=== PATIENT | female | born 1960 | race Caucasian/White ===

== ENCOUNTER → 2023-08-04 12:42 | Outpatient (CLI) | payer BC, SELFPAY ==
--- NOTE | ~2023-08-04 | US_ITS ---
EXAMINATION: US pelvic complete w TV DATE: 08/04/2023 13:09 INDICATION: Postmenopausal bleeding. TECHNIQUE: Multiple transabdominal and transvaginal sonographic images of the pelvis were obtained. COMPARISON: None. FINDINGS: TRANSABDOMINAL ULTRASOUND: The uterus measures 4.1 x 2.9 x 1.8 cm. There is no free fluid in the pelvis. TRANSVAGINAL ULTRASOUND: The endometrial complex measures 2 mm in thickness. The right ovary measures 0.9 x 1.2 x 1.7 cm. Ther e is normal vascular flow in right ovary. The left ovary not visualized. There are prominent periuter ine veins, consistent with pelvic venous insufficiency. IMPRESSION: 1. Normal endometrial complex. 2. Pelvic venous insufficiency. Reviewed, dictated and finalized at location E. [facility] [employer]
== END ==
PROVIDERS: PCP Family Medicine; Visit Provider Registered Nurse
DX: N95.0 Postmenopausal bleeding (principal); I87.2 Venous insufficiency (chronic) (peripheral)
CPT/HCPCS: 76830; 76856

== ENCOUNTER 2024-09-19 13:58 | Outpatient (CLI) | payer BC, SELFPAY ==
--- NOTE | 2024-09-19 14:53 | ECG_ITS ---
Test Date: 2024-09-19 15:16:44 Measurements Intervals [place] Rate: 67 P: 38 HI: 148 QRS: 65 QRSD: 89 T: 55 QT: 376 QTc: 399 Interpretive Statements SINUS RHYTHM No previous ECG available for comparison Electronically Signed On 09-20-2024 13:16:15 CDT by Carly Silverman M.D.
[2024-09-19 15:26] LABS: Basophils Absolute Auto 0.1 K/mm3 (0.0-0.1); Eosinophils Absolute Auto 0.1 K/mm3 (0-0.3); Eosinophils Percent Auto 1.2 % (0-4.4); Hematocrit 42.1 % (37.0-47.0); Hemoglobin 14.5 g/dL (12.0-15.0); Immature Granulocyte Absolute 0.03 K/mm3 (0.00-0.031); Immature Granulocyte Percent A 0.5 % (0-0.5); Lymphocytes Absolute Auto 1.67 K/mm3 (0.9-3.2); Lymphocytes Percent Auto 27.6 % (18.3-44.2); Mean Corpuscular HGB Conc 34.4 g/dl (32-36); Mean Corpuscular Hemoglobin 30.5 pg (26-34); Mean Corpuscular Volume 88.6 fl (80-100); Mean Platelet Volume 9.2 fl (7.4-10.4); Monocytes Absolute Auto 0.6 K/mm3 (0.1-0.6); Monocytes Percent Auto 9.6 % (2.6-8.5); Neutrophils Absolute Auto 3.6 K/mm3 (1.3-6.7); Neutrophils Percent Auto 60.1 % (45.5-73.1); Platelet Count Result 262 k/mm3 (150-375); Red Blood Count 4.75 M/mm3 (4.2-5.4); Red Cell Distribution Width 12.9 % (11.5-14.5)
[2024-09-19 15:42] LABS: INR 0.9; Prothrombin Time 13.1 Seconds (11.1-14.7)
[2024-09-19 15:43] LABS: Partial Thromboplastin Time 27.3 Seconds (22.3-36.8)
[2024-09-19 15:44] LABS: Alanine Aminotransferase 30 U/L (6-35); Albumin Level 4.7 g/dL (3.5-5.1); Alkaline Phosphatase 79 U/L (38-126); Anion Gap 10 mmol/L (4-12); Aspartate Amino Transferase 30 U/L (14-36); Bilirubin,Total 0.4 mg/dL (0.2-1.3); Blood Urea Nitrogen 30 mg/dL (7-17); Calcium 10.3 mg/dL (8.4-10.2); Carbon Dioxide 30 mmol/L (22-30); Chloride 100 mmol/L (98-107); Estimated Glomerular Filt Rate 54; Glucose 95 mg/dL (65-110); Potassium 3.8 mmol/L (3.4-5.0); Sodium 140 mmol/L (137-145)
--- OUTSIDE RECORDS SUMMARY | 2024-09-19 15:50 | XMS_ITS | Referral Summary ---
Author Organization [address] lt Address [address] [place] [address] [place] [address] Care Team Providers Care Gsa Coordinator Name Role Phone Bienvenido Girard MD Primary Care Provider [phone] Rodriguez Key MD Unavailable [phone] Encounters Date Type Department Care Team Description 08/10/2024 8:20 AM REVENUE LIAISON - 08/10/2024 11:59 PM REVENUE LIAISON Hospital Encounter [facility] - Breast Imaging [address] [place] [id number] Encounter for screening mammogram for breast cancer; Abnormal mammogram Discharge Disposition: Discharge to home or self care 08/10/2024 8:30 AM REVENUE LIAISON Office Visit [facility] Surgery [address] [place] [address] Floor [address] [place] [id number] Amina Fleming NP Fibroadenoma of breast, left (Primary Dx); Encounter for screening mammogram for malignant neoplasm of breast 08/09/2024 Telephone [facility] - Breast Imaging [address] [place] [address] 8 [place] [address] Bernabe Matta MA Appointment Reminder Call from Last 3 Months Allergies No known active allergies Medications vitamin E 600 unit capsule Take 1 capsule (600 Units total) by mouth daily Active vitamin B complex capsule Take 1 capsule by mouth daily Active cholecalcifero l (VITAMIN D-3) 2000 unit capsule Take 1 capsule (2,000 Units total) by mouth daily 30 capsule 08/03/19 24 Active calcium-vits D8-F-V2-minera ls 166.75 mg- 166.75 unit capsule Take by mouth Active atorvastatin (LIPITOR) 80 mg tablet Take 1 tablet (80 mg total) by mouth daily 90 tablet 3 02/22/20 24 025 Active dicyclomine (BENTYL) 10 mg capsule Take 1-2 pills up to 4 times daily as needed for problematic diarrhea and/or cramping. Can take 10-15 minutes prior to eating to prevent problematic symptoms after eating. 120 capsule 3 03/22/20 24 Active ascorbic acid (vitamin C) 1,000 mg tablet Active aspirin (Kenna Low Dose Aspirin) 81 mg enteric coated tablet Active coenzyme Q10 200 mg capsule Activ e traMADoL (ULTRAM) 50 mg tabletIndicati ons:Chronic midline low back pain without sciatica Take 1 tablet (50 mg total) by mouth every 6 (six) hours as needed for pain for pain 180 tablet 08/24/19 25 Active budesonide EC (ENTOCORT EC) 3 mg 24 hr capsuleIndicat ions:Microscop ic colitis Take 3 capsules (9 mg total) by mouth every morning 126 capsule 08/28/19 25 025 Active traMADoL (ULTRAM) 50 mg tabletIndicati ons:Chronic midline low back pain without sciatica Take 1 tablet (50 mg total) by mouth every 6 (six) hours as needed for pain for pain 180 tablet 05/18/20 24 025 Discontinued Active Problems Problem Noted Date Diagnosed Date Female bladder prolapse, acquired 05/09/2024 Assessment & Plan (05/09/2024 8:31 AM CDT): Patient reports long history of bladder prolapse, referral placed to Urology today. She reports she is scheduled with Urology, Dr. Mi next month. Denies any symptoms of burning or frequency. Aware to avoid straining and constipation. Lymphocytic colitis 05/08/2024 Diarrhea 03/22/2024 Change in bowel habits 03/22/2024 Abnormal stress test 02/02/2024 Family history of heart disease 01/19/2024 Essential hypertension 01/19/2024 Abnormal mammogram of left breast 08/09/2023 Fibroadenoma of breast, left 08/09/2023 Trigger thumb of left hand 07/19/2023 Encounter for screening mammogram for breast can cer 03/09/2023 Dermatitis 09/02/2022 Assessment & Plan (09/02/2022 8:35 AM REVENUE LIAISON): Continue to avoid any fragrant detergents/lotions/soaps. Will follow up with air cargo ground crew supervisor as schedule 09/07/22. Pain of left upper extremity 05/14/2022 Assessment & Plan (05/14/2022 2:04 PM CDT): No abnormal findings on exam. Discussed nerve irritation with patient. Recommended ibuprofen 6-800 mg 3 times a day with meals. Patient to notify office if no improvement in the next 1-2 weeks or sooner if she experiences any new or worsening symptoms. Annual physical exam 02/12/2022 Assessment & Plan (11/05/2023 5:32 PM CDT): Preventive exam; reviewed recommended preventive screenings and vaccinations. Encourage annual flu vaccine. Wear sunscreen/protective clothing when outdoors. -repeat mammogram 07/2024 -repeat colonoscopy 2027 Assessment & Plan (02/12/2022 8:16 AM CDT): 1. Eat a healthy diet: focus on lean meats and proteins, more fruits, vegetables and whole grains and low in sugars and fats. Limit red meat and avoid processed meat. 2. Maintain a healthy weight; avoid being overweight. Aim for a normal body mass index (BMI) of 18.5-24.9. Help learning to eat healthier, we can set up appointment with pullman car clerk/avionics electrical engineer. 3. Have an active lifestyle, strive for 30 minutes of moderate exercise 5 times a week and strength or resistance training at least twice a week. 4. Use broad-spectrum (UVA+UVB) sunscreen with SPF 30 or greater, is water resistant, limit time spent in the sun (10 am-4pm), wear hat, wear UV protective clothing, wear sunglasses. Never use a tanning bed. Skin that was irradiated may be more sensitive over your lifetime. 5. Does not smoke or chew tobacco. 6. Limit alcohol intake, 1 drink per day for a woman. BMI 21.0-21.9, adult 02/12/2022 Assessment & Plan (05/09/2024 8:30 AM CDT): Patient with active and healthy lifestyle. BMI appropriate for patient Assessment & Plan (11/05/2023 5:31 PM CDT): BMI is appropriate for patient. Assessment & Plan (09/02/2022 8:27 AM REVENUE LIAISON): Discussed healthy diet and importance of regular physical activity. Assessment & Plan (05/14/2022 2:05 PM CDT): BMI acceptable for this patient Assessment & Plan (02/12/2022 8:17 AM CDT): BMI is acceptable for this patient. Discussed healthy diet and importance of regular physical activity. Chronic pain of left thumb 02/12/2022 Assessment & Plan (02/12/2022 8:34 AM CDT): Referral to [facility] for L thumb pain. Contact info given. Mixed hyperlipidemia 03/26/2017 Assessment & Plan (05/09/2024 8:30 AM CDT): See discussion above Assessment & Plan (11/05/2023 5:32 PM CDT): Reviewed lipid panel today with patient. Excellent control. Continue atorvastatin 10 mg daily. Assessment & Plan (03/09/2023 8:18 AM CDT): LDL = 72 patient is compliant with atorvastatin 10 mg daily. Will continue to monitor. Assessment & Plan (09/02/2022 8:28 AM REVENUE LIAISON): Atorvastatin 10 mg daily. Denies any medication side effects. Will repeat labs and make additional changes as needed. Assessment & Plan (02/12/2022 8:14 AM CDT): 12/18/19 CU=144 HDL=77 AV=625 LDL=42 TC/HDL=1.9 12/13/20 PT=331 HDL=70 TG=43 LDL=82 TC/HDL=2.0 NON HDL=91 08/12/21 HE=791 HDL=61 TG=41 LDL=76 TC/HDL=2 NONHDL=84 Lipid panel remains very well controlled over time. Atorvastatin 10mg daily. Denies myalgias. We will check labs and make adjustments to medications as needed. Patient should focus on limiting bad fats in the diet and using exercise as a way to improve the lipid status. Secondary prevention. Reviewed medications. Lipid panel ordered; will call w/results when rec'd. Denies any statin Ses. Reviewed diet/exercise recommendations. Reviewed red flags. The 10-year ASCVD risk score (Cierra JOHNSON Jr., et al., 2013) is: 3.4% Values used to calculate the score: Age: 61 years Sex: Female Is Non- : No Diabetic: No Tobacco smoker: No Systolic Blood Pressure: 126 mmHg Is BP treated: No HDL Cholesterol: 61 mg/dL Total Cholesterol: 145 mg/dL Assessment & Plan (09/12/2020 9:55 AM REVENUE LIAISON): Atorvastatin 10mg daily. 04/20/18 OI=283 HDL=73 TG=59 LDL=85 TC/HDL=2.4 12/18/19 QO=829 HDL=77 DI=320 LDL=42 TC/HDL=1.9 The 10-year ASCVD risk score (Cierra JOHNSON Jr., et al., 2013) is: 2.9% Values used to calculate the score: Age: 60 years Sex: Female Is Non- : No Diabetic: No Tobacco smoker: No Systolic Blood Pressure: 130 mmHg Is BP treated: No HDL Cholesterol: 73 mg/dL Total Cholesterol: 149 mg/dL We will check labs and make adjustments to medications as needed. Patient should focus on limiting bad fats in the diet and using exercise as a way to improve the lipid status. Secondary prevention. Reviewed medications. Lipid panel ordered; will call w/results when rec'd. Denies any statin Ses. Reviewed diet/exercise recommendations. Reviewed red flags. Assessment & Plan (12/18/2019 9:14 AM CDT): 04/20/18 UO=270 HDL=73 TG=59 LDL=85 TC/HDL=2.4 12/18/19 RW=185 HDL=77 CI=388 LDL=42 TC/HDL=1.9 Now doing intermittent fasting diet. Feels that it is going well. Watching intake. Patient should focus on limiting bad fats in the diet and using exercise as a way to improve the lipid status. Secondary prevention. Reviewed medications. Denies any statin Ses. Reviewed diet/exercise recommendations. Reviewed red flags. Coronary artery calcification 10/12/2016 Overview (08/12/2021): Coronary calcium score 621 09/25 Assessment & Plan (05/09/2024 8:30 AM CDT): Patient reports that atorvastatin was increased from 10 mg daily to 80 mg daily by Cardiology. Lipid POCT completed in office today, LDL has increased, will repeat panel at lab to verify. Denies any chest pain or shortness for breath. Chronic low back pain 04/13/2016 Overview (10/15/2016): Chronic bilateral low back pain with sciatica, sciatica laterality unspecified Assessment & Plan (11/05/2023 5:32 PM CDT): Stable, continue present management with p.r.n. tramadol. Assessment & Plan (03/09/2023 8:28 AM CDT): Back pain is stable, good response to prn use of tramadol. Will continue to monitor. Assessment & Plan (09/02/2022 8:36 AM REVENUE LIAISON): Stable; continues tramadol 50 mg bid prn. Denies any new or worsening symptoms, no b/b dysfunction. Assessment & Plan (02/12/2022 8:13 AM CDT): Tramadol 50mg bid prn. #180 refilled 11/17/21. Encouraged otc tylenol/ibuprofen prn back pain. Discussed ice, gentle ROM, increased activity/core strengthening & other non pharm methods of pain relief. Denies bowel/bladder dysfunction. Denies cauda equina. Reviewed red flags. Assessment & Plan (09/12/2020 10:26 AM REVENUE LIAISON): Images from the original note were not included. Tramadol 50mg #28 last filled 08/30/20. Taking bid prn Encouraged otc tylenol/ibuprofen prn back pain. Discussed ice, gentle ROM, increased activity/core strengthening & other non pharm methods of pain relief. Denies bowel/bladder dysfunction. Denies cauda equina. Reviewed red flags. Sent to [facility]. Assessment & Plan (12/18/2019 8:49 AM CDT): Encouraged otc tylenol/ibuprofen prn back pain. Discussed ice, gentle ROM, increased activity/core strengthening & other non pharm methods of pain relief. Denies bowel/bladder dysfunction. Denies cauda equina. Reviewed red flags. Tramadol last filled 09/20/19. Refilled today. Resolved Problems Problem Noted Date Diagnosed Date Resolved Date Breast cancer screening by mammogram 09/12/2020 03/09/2023 Assessment & Plan (02/12/2022 8:13 AM CDT): Last mamm 02/15/21 Mammogram order given; will call with results when received. Encouraged to perform monthly SBE. Assessment & Plan (09/12/2020 10:25 AM REVENUE LIAISON): Mammogram order given; will call with results when received. Encouraged to perform monthly SBE. BMI 21.0-21.9, adult 12/18/2019 022 Assessment & Plan (09/12/2020 9:54 AM REVENUE LIAISON): Discussed healthy diet and importance of regular physical activity. BMI is acceptable for this patient. Assessment & Plan (12/18/2019 8:47 AM CDT): Discussed healthy diet and importance of regular physical activity. BMI is acceptable for this patient. Encounter for screening colonoscopy 03/08/2018 12/18/2019 Overview (03/08/2018): Added automatically from request for surgery [id number] Distal radius fracture, right 07/28/2017 12/17/2019 Feces contents abnormal 11/25/201301/2020 Overview (10/14/2016): ABN FIND-STOOL CONTENTS Constipation 11/25/2013 12/18/2019 Overview (10/14/2016): CONSTIPATION NOS Immunizations Immunization Administration Dates Next Due Influenza, Quadrivalent, Spl it, Intramuscular 03/12/2014 Influenza, Quadrivalent, Spl it, Preservative Free, Intramuscular 03/26/2017 Influenza, Trivalent, IM (MDV) 04/25/2024 Influenza, Unspecified 11/05/2023(Deferr ed: Patient Refused),04/11/2023(Deferred: Patient Refused),04/11/2023(Deferred: Patient Refused),04/01/2022,04/11/2021, 020(Deferred: Patient Refused),04/11/2020,04/11/2020, 019(Deferred: Patient Refused),05/03/2019,05/03/2019, 018,04/11/2018 Pfizer SARS-CoV-2 Monovalent Vaccination (12+ Yrs) BAKER-READY TO USE 01/30/2022 Pfizer SARS-CoV-2 Monovalent Vaccination (12+ Yrs) PURPLE 09/28/2020,09/07/2020,09/07/2020 Pfizer SARS-CoV-2 Monovalent Vaccination (5-11 Yrs) 05/30/2021 Social History Tobacco Use Types Packs/Day Years Used Date Smoking Tobacco: Never Smokeless Tobacco: Never Tobacco Cessation:Counseling Given: Not Answered Alcohol Use Standard Drinks/Week Comments Yes 1 (1 standard drink = 0.6 oz pur e alcohol) Weekends/Occassional AUDIT-C Answer Date Recorded Q1: How often do you have a drink containing alc ohol? 2-4 times a month 04/20/2024 Q2: How many drinks containi ng alcohol do you have on a typical day when you are drinking? 1 or 2 04/20/2024 Frequency of Binge Drinking Not on file 04/11 PHQ-2 Answer Date Recorded PHQ-2 Total Score (If total score is 3 or more points, staff should administer the PHQ-9) 0 05/09/2024 Personal Safety Answer Date Recorded Have you ever been in or are you currently in a harmful physical or emotional relationship or is someone making you feel afraid or unsafe? Denies 04/24/2024 Comments No Sex and Gender Information Value Date Recorded Sex Assigned at Not on file Legal Sex Female 5:53 PM REVENUE LIAISON Gender Identity Female 08/12/2021 7:52 AM REVENUE LIAISON Sexual Orientation Straight 08/12/2021 7: 52 AM REVENUE LIAISON Last Filed Vital Signs Vital Sign Reading Time Taken Comments Blood Pressure 146/80 08/10/2024 8:27 AM REVENUE LIAISON Pulse 58 08/10/2024 8:27 AM REVENUE LIAISON Temperature 36.5 C (97.7 F) 05/09/2024 7:51 AM CDT Respiratory Rate 18 08/10/2024 8:27 AM REVENUE LIAISON Oxygen Saturation 98% 08/10/2024 8:27 AM REVENUE LIAISON Inhaled Oxygen Concentration - - Weight 53.5 kg (118 lb) 08/10/2024 8:27 AM REVENUE LIAISON Height 154.9 cm (5' 0.98 ) 08/10/2024 8:27 AM CS T Body Mass Index 22.31 08/10/2024 8:27 AM REVENUE LIAISON Plan of Treatment Not on file Medical Devices Implanted Type Area Almond Sorter Device Identifier Shelf Expiration Date Model / Serial / Lot Plate Bone Acu-Loc 2 Narrow L51 Mm Radius Right Distal Volar Nonsterile Silver 2.3 Mm Screw - [id number] Implanted:Qty: 1 on 08/05/2017 by Agustin Garcia III, MD at [facility] Analiza [id number] / / Screw Bone L12 Mm Od3.5 Mm Elbow Locking Hexalobe Sterile - [id number] Implanted:Qty: 1 on 08/05/2017 [id number] / / Peg Bone 22mm 2.3mm Aclc Sm Lkng - [id number] Implanted:Qty: 2 on 08/05/2017 by [facility]ust[id number] / / Screw Bone Titanium Full Thread L20 Mm Od2.3 Mm Cortical Lock Nonsterile Gold - [id number] Implanted:Qty: 1 on 08/05/2017 by Agustin Garcia III, MD at [facility] [employer] [id number] / / Peg Fixation Acu-Loc Titanium L18 Mm Od2.3 Mm Cortical Smooth Lock Nonsterile Bronze - [id number] Implanted:Qty: 1 on 08/05/2017 by Agustin Garcia III, MD at [facility] [employer] [id number] / / Peg Fixation Acu-Loc Titanium L20 Mm Od2.3 Mm Cortical Smooth Lock Nonsterile Bronze - [id number] Implanted:Qty: 1 on 08/05/2017 by Agustin Garcia III, MD at [facility] [employer] [id number] / / Screw Bone L12 Mm Od3.5 Mm Nonlock Hexalobe Head Nonsterile - [id number] Implanted:Qty: 1 on 08/05/2017 by Agustin Garcia III, MD at [facility] Analiza [id number] / / Screw Bone L10 Mm Od3.5 Mm Elbow Locking Hexalobe Sterile - [id number] Implanted:Qty: 1 on 08/05/2017 by Agustin Garcia III, MD at [facility] Analiza [id number] / / Peg Fixation Acu-Loc Titanium L20 Mm Od2.3 Mm Cortical Smooth Lock Nonsterile Bronze - [id number] Implanted:Qty: 1 on 08/05/2017 by Agustin Garcia III, MD at [facility] [employer] [id number] / / [employer] Eviva 13cm Identifier Biopsy Site [id number] - [id number] Implanted:Qty: 1 on 08/02/2023 by Mo Escobedo MD at [facility] Left: Breast [employer] [id number] 02/16/2024 [facility] VA-13 / / [id number] [employer] Fernando Angio-Seal Vip 6fr Closere Device [id number] - [id number] Implanted:Qty: 1 on 02/22/2024 by Meseret Jin MD at [facility] [employer] 09/30/2024 [id number] / / [id number] Explanted Type Area Almond Sorter Device Identifier Shelf Expiration Date Model / Serial / Lot Screw Bone Acu-Loc 2 Titanium L22 Mm Od2.3 Mm Cortical Nontoggle Thread Nonsterile Silver - [id number] Implanted:Qty: 1 Explanted:Qty: 1 on 08/05/2017 at [facility] [employer] [id number] / / Procedures Procedure Name Priority Date/Time Associated Diagnosis Comments SCREENING MAMMOGRAM BILATERAL W SAM Schedule Routine, Read Routine (OP Routine) 08/10/2024 9:34 AM REVENUE LIAISON Encounter for screening mammogram for breast cancer Abnormal mammogram COLONOSCOPY 04/24/2024 12:35 PM CDT DEXA AXIAL SKELETON BONE DENSITY 1 OR MORE SITES Schedule Routine, Read Routine (OP Routine) 12/01/2023 7:58 AM CDT Encounter for osteoporosis screening in asymptomatic postmenopausal patient HEPATITIS C RNA, QUANTITATIVE, PCR Routine 12/18/2019 9:24 AM CDT HM PAP SMEAR WITH HPV Routine 04/24/2016 from Last 3 Months or Most Recently Relevant to Health Maintenance Results * Screening Mammogram Bilateral W Sam (08/10/2024 9:34 AM REVENUE LIAISON) Anatomical Region Laterality Modality Breast Bilateral Mammography Narrative 08/10/2024 2:09 PM REVENUE LIAISON Mammogram Technique: Bilateral Digital Breast Tomosynthesis, Bilateral C-view 2D Screening mammogram. Views obtained: bilateral craniocaudal and bilateral mediolateral oblique. Computer Aided Detection was performed. Mammogram Findings: The present examination has been compared to prior imaging studies performed at [facility]. [facility] on 03/07/2022, 05/22/2023 and 06/24/2023. There are scattered areas of fibroglandular density. There is no suspicious abnormality in either breast. Impression: There is no mammographic evidence of malignancy. Annual screening mammography is recommended. OVERALL FINAL ASSESSMENT: BI-RADS CATEGORY 1: Negative. Procedure Note Grace Enciso MD - 08/10/2024 Mammogram Technique: Bilateral Digital Breast Tomosynthesis, Bilateral C-view 2D Screening mammogram. Views obtained: bilateral craniocaudal and bilateral mediolateral oblique. Computer Aided Detection was performed. Mammogram Findings: The present examination has been compared to prior imaging studies performed at [facility]. [facility] on 03/07/2022, 05/22/2023 and 06/24/2023. There are scattered areas of fibroglandular density. There is no suspicious abnormality in either breast. Impression: There is no mammographic evidence of malignancy. Annual screening mammography is recommended. OVERALL FINAL ASSESSMENT: BI-RADS CATEGORY 1: Negative. Amina Fleming MICROCOMPUTER SUPPORT SPECIALIST IMG MAMMO PROCEDURES Fi nal Result * Colonoscopy (04/24/2024 12:35 PM CDT) Anatomical Region Laterality Modality Other Narrative Procedure Note Nacho Sue, - 04/24/2024 12:35 PM CDT [facility] Patient Name: Alice Castillo Procedure Date: 04/24/2024 12:35PM Date of : 1960 Admit Type: Outpatient Age: 63 Gender: Female Attending MD: Nacho Sue D.O. Room: [facility] ROOM 2 Note Status: Finalized Patient Profile: This is a 63 year old female. Procedure: Colonoscopy Indications: Last colonoscopy: May 2018, Abdominal pain, Clinically significant diarrhea of unexplainedorigin Referring MD: Bienvenido Girard M.D. Providers: Nacho Sue D.O. Impression: - The terminal ileum is normal. Biopsied. - The examined portion of the ileum was normal. Recommendation: - Discharge patient to home. - Benefiber or Metamucil q.d.. Weimob probiotic per labelinstructions. indefinitely. - Repeat colonoscopy in 10 years for screening purposes. - Return to primary care physician PRN. - Await pathology results. -cautious intake of dairy products. -dicyclomine t.i.d. as needed. -call 2 weeks for biopsy report. -follow-up in the office if no improvement. Medicines: See the Anesthesia note for documentation of the administered medications Complications: No immediate complications. Estimated Blood Loss: Estimated blood loss: none. Procedure: Pre-Anesthesia Assessment: - Please refer to anesthesia note. The benefits, risks and alternatives of theprocedure and sedation were discussed and informed consentwas obtained. All questions were answered. Please referto the signed informed consent document in the medical record. The bowel preparation used was Miralax and bisacodyl tablets via split dose instruction. The scope was passed under direct vision. The Pediatric Colonoscope [id number]-[id number] was introducedthrough the anus and advanced to the the terminal ileum.The patient tolerated the procedure well. The qualityof the bowel preparation was good. Findings: The perianal and digital rectal examinations were normal. The ileum appeared normal. Biopsies for histology were taken with acold forceps from the entire colon for evaluation of microscopic colitis. Estimated blood loss was minimal. The terminal ileum appeared normal. Electronically signed by Nacho Sue M.D. Nacho Sue D.O. 04/24/2024 3:03:28 PM Number of Addenda: 0 Note Initiated On: 04/24/2024 12:35 PM Procedure Code(s): --- Professional --- 57399, Colonoscopy, flexible; with biopsy, single or multiple --- Technical --- 54485, Colonoscopy, flexible; with biopsy, single or multiple Diagnosis Code(s): --- Professional --- R10.9, Unspecified abdominal pain R19.7, Diarrhea, unspecified --- Technical --- R10.9, Unspecified abdominal pain R19.7, Diarrhea, unspecified CPT copyright 2020 [employer]. All rights reserved. The codes documented in this report are preliminary and upon label coder reviewmay be revised to meet current compliance requirements. 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 IMPRESSION: Osteoporosis. REFERENCE: Bone mineral density: T-Score: Normal (T-score above or = -1.0) Low bone mass (T-score between -1.0 and -2.5) replaces the previously used term osteopenia Osteoporosis (T-score = or below -2.5) Z-Score: Within the expected range for age (Z-score above -2.0) Below the expected range for age (Z-score is -2.0 or below) Please see below follow up recommendations. Medical evaluation for secondary causes of low bone mineral density may be appropriate. FRAX is a World Health Organization validated fracture risk assessment tool that calculates a person's 10 year probability of a major osteoporosis related fracture and hip fracture. According to the National Osteoporosis Foundation guidelines, postmenopausal women and men age 50 or older with low bone mass and a 10 year probability of a major osteoporosis related fracture = or greater than 20% or a 10 year probability of a hip fracture = or greater than 3% should be considered for pharmacological treatment for the prevention of osteoporosis. For further information, including treatment recommendations, please refer to the 2019 ISCD Official Positions (http://www.iscd.org) and the NOF's Clinician's Guide to Prevention and Treatment of Osteoporosis (http://www.nof.org/professionals/clinical-guidelines) THIS IS AN ELECTRONICALLY VERIFIED FINAL REPORT 12/01/2023 3:28 PM - Electronically signed by Nicolas Frazier M.D. 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 IMPRESSION: Osteoporosis. REFERENCE: Bone mineral density: T-Score: Normal (T-score above or = -1.0) Low bone mass (T-score between -1.0 and -2.5) replaces thepreviously used term osteopenia Osteoporosis (T-score = or below -2.5) Z-Score: Within the expected range for age (Z-score above -2.0) Below the expected range for age (Z-score is -2.0 or below) Please see below follow up recommendations. Medical evaluation forsecondary causes of low bone mineral density may be appropriate. FRAX is a World Health Organization validated fracture risk assessmenttool that calculates a person's 10 year probability of a major osteoporosisrelated fracture and hip fracture. According to the National OsteoporosisFoundation guidelines, postmenopausal women and men age 50 or older with low bonemass and a 10 year probability of a major osteoporosis related fracture = or greater than 20% or a 10 year probability of a hip fracture = or greaterthan 3% should be considered for pharmacological treatment for the preventionof osteoporosis. For further information, including treatment recommendations, please referto the 2019 ISCD Official Positions (http://www.iscd.org) and the NOF's Clinician's Guide to Prevention and Treatment of Osteoporosis (http://www.nof.org/professionals/clinical-guidelines) THIS IS AN ELECTRONICALLY VERIFIED FINAL REPORT 12/01/2023 3:28 PM - Electronically signed by Nicolas HOFF: LUIS EDUARDO Report ID: [id number] Reading Location: [place] [address] Leah Potter NP IMG DXA PROCEDURES Final Re sult * Hepatitis C (HCV) RNA PCR, quantitative (12/18/2019 9:24 AM CDT) HCV RNA IU/mL <15 NOT DETECTED NOT DETECTED IU/mL [facility] HCV RNA log IU/mL <1.18 NOT DETECTED NOT DETECTED Log IU/mL [facility] Comment: This test was performed using Real-Time Polymerase Chain Reaction. Reportable Range: 15 IU/mL to 100,000,000 IU/mL (1.18 Log IU/mL to 8.00 Log IU/mL). The analytical performance characteristics of this assay have been determined by [employer]. The modifications have not been cleared or approved by the FDA. This assay has been validated pursuant to the CLIA regulations and is used for clinical purposes. For more information on this test, go to: http://education.Pain Doctor/faq/DHW93s1 (This link is being provided for informational/ educational purposes only.) 12/18/2019 9:24 AM CDT 12/18/2019 9:26 AM CDT Narrative [facility] - 12/19/2019 3:27 PM CDT FASTING:YES FASTING: YES Vanessa Rasmussen NP LAB MICROBIOLOGY - GENERA L ORDERABLES Final Result [facility] [address] [place] [address] * PAP SMEAR WITH HPV (04/24/2016) Pathologist [facility] Pap smear Normal Comment:Dr Fuentes at [facility] Historical Provider HEALTH MAINTENANCE Final Result from Last 3 Months or Most Recently Relevant to Health Maintenance Insurance [employer] OOS [employer] OOS * Guarantor: ALICE CASTILLO Account Type Relation to Patient Date of Phone Billing Address Personal/Family Self Advance Directives For more information, please contact: [phone] * Full Code (Latest Code Status on File) Date Activated Date Inactivated Comments 04/24/2024 12:37 PM 04/24/2024 7:43 PM * Full Code Date Activated Date Inactivated Comments 04/24/2024 12:37 PM 04/24/2024 12:37 PM * Full Code Date Activated Date Inactivated Comments 05/30/2018 7:42 AM 05/30/2018 11:32 AM * Full Code Date Activated Date Inactivated Comments 05/30/2018 7:42 AM 05/30/2018 7:42 AM Care Teams Gsa Coordinator Relationship Specialty Start Date End Date Bienvenido Girard [place] [address] PCP - General 10/09/16 Rodriguez Key MD [address] [facility] [address] [address] Referring Physician Obstetrics and Gynecology 06/24/23
--- OUTSIDE RECORDS SUMMARY | 2024-09-19 15:50 | XMS_ITS | Clinical Summary ---
Author Organization [address] lt Address [address] [place] [address] [place] [address] Care Team Providers Care Software Test Specialist Name Role Phone Bienvenido Girard MD Primary Care Provider [phone] Rodriguez Key MD Unavailable [phone] Allergies No known active allergies Medications vitamin E 600 unit capsule Take 1 capsule (600 Units total) by mouth daily Active vitamin B complex capsule Take 1 capsule by mouth daily Active cholecalcifero l (VITAMIN D-3) 2000 unit capsule Take 1 capsule (2,000 Units total) by mouth daily 30 capsule 08/03/19 24 Active calcium-vits C5-R-Y3-minera ls 166.75 mg- 166.75 unit capsule Take [...] 09/02/2022 Assessment & Plan (09/02/2022 8:35 AM REPORTING LEAD): Continue to avoid any fragrant detergents/lotions/soaps. Will follow up with diamond setter apprentice as schedule 09/07/22. Pain of left upper [...] healthier, we can set up appointment with fire control mechanic/rhic systems safety engineer. 3. Have an active lifestyle, strive [...] patient. Assessment & Plan (09/02/2022 8:27 AM REPORTING LEAD): Discussed healthy diet and importance of regular [...] monitor. Assessment & Plan (09/02/2022 8:28 AM REPORTING LEAD): Atorvastatin 10 mg daily. Denies any medication side effects. Will repeat labs and make additional changes as needed. Assessment & Plan (02/12/2022 8:14 AM CDT): 12/18/19 SC=107 HDL=77 TZ=879 LDL=42 TC/HDL=1.9 12/13/20 MV=141 HDL=70 TG=43 LDL=82 TC/HDL=2.0 NON HDL=91 08/12/21 KW=693 HDL=61 TG=41 LDL=76 TC/HDL=2 NONHDL=84 Lipid panel [...] red flags. The 10-year ASCVD risk score (Cierragisela JOHNSON Jr., et al., 2013) is: 3.4% Values used to calculate the score: Age: 61 years Sex: Female Is Non- : No Diabetic: No Tobacco smoker: No Systolic Blood Pressure: 126 mmHg Is BP treated: No HDL Cholesterol: 61 mg/dL Total Cholesterol: 145 mg/dL Assessment & Plan (09/12/2020 9:55 AM REPORTING LEAD): Atorvastatin 10mg daily. 04/20/18 DV=540 HDL=73 TG=59 LDL=85 TC/HDL=2.4 12/18/19 AC=167 HDL=77 WH=888 LDL=42 TC/HDL=1.9 The 10-year ASCVD risk score [...] & Plan (12/18/2019 9:14 AM CDT): 04/20/18 DM=876 HDL=73 TG=59 LDL=85 TC/HDL=2.4 12/18/19 QF=097 HDL=77 BN=933 LDL=42 TC/HDL=1.9 Now doing intermittent fasting diet. [...] monitor. Assessment & Plan (09/02/2022 8:36 AM REPORTING LEAD): Stable; continues tramadol 50 mg bid prn. [...] flags. Assessment & Plan (09/12/2020 10:26 AM REPORTING LEAD): Images from the original note were not [...] SBE. Assessment & Plan (09/12/2020 10:25 AM REPORTING LEAD): Mammogram order given; will call with results when received. Encouraged to perform monthly SBE. BMI 21.0-21.9, adult 12/18/2019 022 Assessment & Plan (09/12/2020 9:54 AM REPORTING LEAD): Discussed healthy diet and importance of regular physical activity. BMI is acceptable for this patient. Assessment & Plan (12/18/2019 8:47 AM CDT): Discussed healthy diet and importance of regular physical activity. BMI is acceptable for this patient. Encounter for screening colonoscopy 03/08/2018 12/18/2019 Overview (03/08/2018): Added automatically from request for surgery [id number] Distal radius fracture, right 07/28/2017 12/17/2019 Feces contents abnormal 11/25/2013 060 01/2020 Overview (10/14/2016): ABN FIND-STOOL CONTENTS Constipation 11/25/2013 12/18/2019 Overview (10/14/2016): CONSTIPATION NOS Encounters Date Type Department Care Team Description 08/10/2024 8:30 AM REPORTING LEAD Office Visit [facility] Floor [address] [place] [address] Amina Fleming, JUAN JOSE Fibroadenoma of breast, left (Primary Dx); Encounter for screening mammogram for malignant neoplasm of breast 08/10/2024 8:20 AM REPORTING LEAD - 08/10/2024 11:59 PM REPORTING LEAD Hospital Encounter [facility] - [facility] [address] [facility] [address] [place] [address] Encounter for screening mammogram for breast cancer; Abnormal mammogram Discharge Disposition: Discharge to home or self care 08/09/[address] [facility] - Breast [facility] [address] [facility] [address] [place] [address] Bernabe Matta MA Appointment Reminder Call from Last 3 Months Immunizations Immunization Administration Dates Next Due Influenza, [...] Pfizer SARS-CoV-2 Monovalent Vaccination (5-11 Yrs) 05/30/2021 Surgical History Surgery Date Site/Laterality Comments TONSILLECTOMY Tonsillectomy OTHER SURGICAL HISTORY Costochondritis ROTATOR CUFF REPAIR Bilateral Rotator cuff repair COLONOSCOPY 05/28/08 FRACTURE SURGERY 08/05/2017 Right fracture rt wrist BREAST BIOPSY 08/02/2023 Left COLONOSCOPY 05/30/2018 Medical History Medical History Date Comments HLD (hyperlipidemia) Osteoporosis GERD (gastroesophageal reflux disease) Lymphocytic colitis Family History Medical History Relation Name Comments Diabetes Brother 1 Timothy Diabetes mellit us; Prostate cancer Brother 2 Christopher Alcohol abuse Brother 3 Sony HIV Brother 3 Sony Heart attack Father Tod Myocardial infa rction; Heart disease Father Tod Heart disease; Other Father Tod mesothelioma; / Mesothelioma; Cause of : Mesothelioma Coronary artery disease Mother Prachi Radha nary artery disease; Diabetes type II Mother Prachi Diabetes me llitus type 2; HTN Mother Prachi Heart attack Mother Prachi Heart disease Mother Prachi Heart disease; /Family history of cardiac disorder - (Added by TW Conv) Heart failure Mother Prachi Congestive hea rt failure; Cause of : Congestive heart failure Stroke Mother Prachi Stroke; /Family history of cerebrovascular accident (CVA) - (Added by TW Conv) Breast cancer Neg Hx Ovarian cancer Neg Hx Uterine cancer Neg Hx Relation Name Status Comments Brother 1 Timothy (Age 63) Brother 2 Christopher Alive Brother 3 Sony (Age 54) Father Mykel (Age 74) Mother Prachi (Age 84) Social History Tobacco Use Types Packs/Day Years [...] on file Legal Sex Female 5:53 PM REPORTING LEAD Gender Identity Female 08/12/2021 7:52 AM REPORTING LEAD Sexual Orientation Straight 08/12/2021 7: 52 AM REPORTING LEAD Obstetrics History Para Term AB IAB SAB Ectopic Multiple Livin g Live Births 1 1 1 Date Outcome GA Total Labor Labor/2nd/3rd Weight Sex Type Anes PTL Maranda A1 A5 Name Clin Term Last Filed Vital Signs Vital Sign Reading Time Taken Comments Blood Pressure 146/80 08/10/2024 8:27 AM REPORTING LEAD Pulse 58 08/10/2024 8:27 AM REPORTING LEAD Temperature 36.5 C (97.7 F) 05/09/2024 7:51 AM CDT Respiratory Rate 18 08/10/2024 8:27 AM REPORTING LEAD Oxygen Saturation 98% 08/10/2024 8:27 AM REPORTING LEAD Inhaled Oxygen Concentration - - Weight 53.5 kg (118 lb) 08/10/2024 8:27 AM REPORTING LEAD Height 154.9 cm (5' 0.98 ) 08/10/2024 8:27 AM CS T Body Mass Index 22.31 08/10/2024 8:27 AM REPORTING LEAD Plan of Treatment Health Maintenance Due Date Last Done Comments DTaP/Tdap/Td Vaccine (1 - Tdap) 1969 Hepatitis B Screening 1976 Pneumococcal vaccine 65+ (1 of 1 - PCV) 2008 Zoster Vaccine (1 of 2) 2008 Covid-19 Vaccine (6 - 2023-2 5 season) 2024 01/30/2022, 05/30/2021, 05/30/2021, Additional history exists Well Visit 65+ 11/04/2024 11/05/2023, 02/12/2022 Depression Screening 05/09/2025 05/09/2024, 11/05/2023, 03/09/2023, Additional history exists Fall Risk Assessment 05/09/2025 05/09/2024, 02/22/2024, 11/05/2023, Additional history exists Breast Cancer Screening-Mammogram 08/10/2025 08/10/2024, 05/22/2023, 03/07/2022, Additional history exists Osteoporosis Screening-Bone Density Scan 11/30/2025 12/01/2023 Colon Cancer Screening-Colonoscopy 04/24/2034 04/24/2024, 05/30/2018, 05/28/2008 Cervical Cancer Screening Discontinued 04/24/2016 Hepatitis C Screening Completed 12/18/2019 Colon Cancer Screening-CT Colonography Discontinued 04/24/2024, 05/30/2018, 05/28/2008 Colon Cancer Screening-DNA Stool Discontinued 04/24/2024, 05/30/2018, 05/28/2008 Colon Cancer Screening-FIT Discontinued 04/24, 05/30/2018, 05/28/2008 Colon Cancer Screening-Sigmoidoscopy Discontinued 04/24/2024, 05/30/2018, 05/28/2008 Influenza Vaccine Completed 04/25/2024, , 04/11/2021, Additional history exists Medical Devices Implanted Type Area Branch Maker Device Identifier Shelf Expiration Date Model / Serial / Lot Plate Bone Acu-Loc 2 Narrow L51 Mm Radius Right Distal Volar Nonsterile Silver 2.3 Mm Screw - [id number] Implanted:Qty: 1 on 08/05/2017 by Agustin Garcia III, MD at [facility] [employer] [id number] / / Screw Bone L12 Mm Od3.5 Mm Elbow Locking Hexalobe Sterile - [id number] Implanted:Qty: 1 on 08/05/2017 by Agustin Garcia III, MD at [facility] [employer] [id number] / / Peg Bone 22mm 2.3mm Aclc Smth Lkng - [id number] Implanted:Qty: 2 on 08/05/2017 by Agustin Garcia III, MD at [facility] [employer] [id number] / / Screw Bone Titanium Full Thread L20 Mm Od2.3 Mm Cortical Lock Nonsterile Gold - [id number] Implanted:Qty: 1 on 08/05/2017 by Agustin Garcia III, MD at [facility] [employer] [id number] / / Peg Fixation Acu-Loc Titanium L18 Mm Od2.3 Mm Cortical Smooth Lock Nonsterile Bronze - [id number] Implanted:Qty: 1 on 08/05/2017 by Agustin Garcia III, MD at [facility] [employer] [id number] / / Peg Fixation Acu-Loc Titanium L20 Mm Od2.3 Mm Cortical Smooth Lock Nonsterile Bronze - [id number] Implanted:Qty: 1 on 08/05/2017 by Agustin Garcia III, MD at [facility] [employer] [id number] / / Screw Bone L12 Mm Od3.5 Mm Nonlock Hexalobe Head Nonsterile - [id number] Implanted:Qty: 1 on 08/05/2017 [id number] / / Screw Bone L10 Mm Od3.5 Mm Elbow Locking Hexalobe Sterile - [id number] Implanted:Qty: 1 on 08/05/2017 by Agustin Garcia III, MD at [facility] [id number] / / Peg Fixation Acu-Loc Titanium L20 Mm Od2.3 Mm Cortical Smooth Lock Nonsterile Bronze - [id number] Implanted:Qty: 1 on 08/05/2017 by Agustin Garcia III, MD at [facility] [id number] / / [employer] Eviva 13cm Identifier Biopsy Site [id number] - [id number] Implanted:Qty: 1 on 08/02/2023 by Mo Escobedo MD at [facility] Left: Breast [employer] [id number] 02/16/2024 [facility] [id number] / / [id number] [employer] Angio-Seal Vip 6fr Closere Device [id number] - [id number] Implanted:Qty: 1 on 02/22/2024 by Meseret Jin MD at [facility] [employer] 09/30/2024 [id number] / / [id number] Explanted Type Area Branch Maker Device Identifier Shelf Expiration Date Model / Serial / Lot Screw Bone Acu-Loc 2 Titanium L22 Mm Od2.3 Mm Cortical Nontoggle Thread Nonsterile Silver - [id number] Implanted:Qty: 1 Explanted:Qty: 1 on 08/05/2017 at [facility] [employer] [id number] / / Procedures Procedure Name Priority Date/Time Associated Diagnosis Comments SCREENING MAMMOGRAM BILATERAL W SAM Schedule Routine, Read Routine (OP Routine) 08/10/2024 9:34 AM REPORTING LEAD Encounter for screening mammogram for breast cancer [...] Mammogram Bilateral W Sam (08/10/2024 9:34 AM REPORTING LEAD) Anatomical Region Laterality Modality Breast Bilateral Mammography Narrative 08/10/2024 2:09 PM REPORTING LEAD Mammogram Technique: Bilateral Digital Breast Tomosynthesis, Bilateral C-view 2D Screening mammogram. Views obtained: bilateral craniocaudal and bilateral mediolateral oblique. Computer Aided Detection was performed. Mammogram Findings: The present examination has been compared to prior imaging studies performed at [facility] on 03/07/2022, 05/22/2023 and 06/24/2023. There are [...] compared to prior imaging studies performed at [facility] on 03/07/2022, 05/22/2023 and 06/24/2023. There are scattered areas of fibroglandular density. There is no suspicious abnormality in either breast. Impression: There is no mammographic evidence of malignancy. Annual screening mammography is recommended. OVERALL FINAL ASSESSMENT: BI-RADS CATEGORY 1: Negative. Amina Fleming NP IMG MAMMO PROCEDURES Fi nal Result * Colonoscopy (04/24/2024 12:35 PM CDT) Anatomical Region Laterality Modality Other Narrative Procedure Note Nacho Sue DO - 04/24/2024 12:35 PM CDT Center Patient Name: Tayla Castillo Procedure Date: 04/24/2024 12:35PM Date of : 1960 Admit Type: Outpatient Age: 63 Gender: Female Attending MD: Nacho Sue D.O. Room: [facility] END[facility]COPY ROOM 2 Note Status: Finalized Patient Profile: [...] to home. - Benefiber or Metamucil q.d.. [place] colon Health probiotic per labelinstructions. indefinitely. - Repeat colonoscopy [...] under direct vision. The Pediatric Colonoscope [id number] was introducedthrough the anus and advanced to [...] 12:35 PM Procedure Code(s): --- Professional --- 73508, Colonoscopy, flexible; with biopsy, single or multiple --- Technical --- 31772, Colonoscopy, flexible; with biopsy, single or multiple Diagnosis Code(s): --- Professional --- R10.9, Unspecified abdominal pain R19.7, Diarrhea, unspecified --- Technical --- R10.9, Unspecified abdominal pain R19.7, Diarrhea, unspecified CPT copyright 2020 [employer]. All rights reserved. The codes documented in this report are preliminary and upon outpatient coder reviewmay be revised to meet current compliance requirements. Recognized by the [employer] for promoting quality [...] with given history of: post-menopausal osteoporosis prevention Branch Maker/Model: [employer] (S/N 69663) CLINICAL INFORMATION: Current height: 60.3 inches Maximum [...] Frazier M.D. MF: LUIS EDUARDO Report ID: [id number] Reading Location: [place] [address] Procedure Note Nicolas Frazier MD - 12/01/2023 EXAM DESCRIPTION: DEXA AXIAL SKELETON BONE DENSITY 1 OR MORE SITES REASON FOR STUDY: 63 y/o year old F with given history of: post-menopausal osteoporosis prevention Branch Maker/Model: [employer] SL (S/N 97242) CLINICAL INFORMATION: Current height: 60.3 inches Maximum [...] Frazier M.D. MF: LUIS EDUARDO Report ID: [id number] Reading Location: [place] [address] Leah Potter PAYROLL AND BENEFITS ANALYST IMG DXA PROCEDURES Final Re sult * Hepatitis C (HCV) RNA PCR, quantitative (12/18/2019 9:24 AM CDT) [facility] [address] HCV RNA IU/mL <15 NOT DETECTED NOT DETECTED IU/mL [facility] HCV RNA log IU/mL <1.18 NOT DETECTED NOT DETECTED Log IU/mL [facility] Comment: This test was performed using Real-Time Polymerase Chain Reaction. Reportable Range: 15 IU/mL to 100,000,000 IU/mL (1.18 Log IU/mL to 8.00 Log IU/mL). The analytical performance characteristics of this assay have been determined by [employer]. The modifications have not been cleared or approved by the FDA. This assay has been validated pursuant to the CLIA regulations and is used for clinical purposes. For more information on this test, go to: http://education.[employer].24/7 Card/faq/GRR05f4 (This link is being provided for informational/ educational purposes only.) 12/18/2019 9:24 AM CDT 12/18/2019 9:26 AM CDT Narrative [facility] - 12/19/2019 3:27 PM CDT FASTING:YES FASTING: YES Vanessa Rasmussen NP LAB MICROBIOLOGY - GENERA L ORDERABLES Final Result [facility] [address] [address] [address] * PAP SMEAR WITH HPV (04/24/2016) [facility] Pap smear Normal Comment:Dr Fuentes at [facility] Historical Provider MD HEALTH MAINTENANCE Final Result from Last 3 Months or Most Recently Relevant to Health Maintenance Insurance [employer] OOS [employer] OOS * Guarantor: TAYLA CASTILLO Account Type Relation to Patient Date of Phone Billing Address Personal/Family Self Advance Directives For more information, please contact: [phone] * Full Code (Latest Code Status on File) Date Activated Date Inactivated Comments 04/24/2024 12:37 PM 04/24/2024 7:43 PM * Full Code Date Activated Date Inactivated Comments 04/24/2024 12:37 PM 04/24/2024 12:37 PM * Full Code Date Activated Date Inactivated Comments 05/30/2018 7:42 AM 05/30/2018 11:32 AM * Full Code Date Activated Date Inactivated Comments 05/30/2018 7:42 AM 05/30/2018 7:42 AM Care Teams Software Test Specialist Relationship Specialty Start Date End Date Bienvenido Girard MD [address] [place] [address] PCP - General 10/09/16 Rodriguez Key MD [address] [facility] [address] [facility] [address] [place] [address] Referring Physician Obstetrics and Gynecology 06/24/23
--- OUTSIDE RECORDS SUMMARY | 2024-09-19 15:50 | XMS_ITS | Clinical Summary ---
Author Organization [facility] Address [address] [place] [place] [address] Phone Care Team Providers Care Lead Applier Name Role Phone Bienvenido Girard MD Primary Care Provider [phone] Allergies No known active allergies Medications traMADol (ULTRAM) 50 mg tablet Take 50 mg by mouth 4 times daily Make take every 6 hrs. As needed. 0 09/08/2016 Active pyridoxine, vitamin B6, (VITAMIN B6) 100 mg Tablet Take 50 mg by mouth daily. Active CHOLECALCIFEROL , VITAMIN D3, (CHOLECALCIFERO L, VITD3,, BULK,) 2,400 unit/mL Liquid 5,000 Units [place] [facility] [place]Non-[place]ake [place]; Combo Route) route daily. Active MAGNESIUM AMINO ACID CHELATE (MAG AMINO ACID CHELATE, BULK,) 20 % Powder 325 mg [place] [facility] [place]Non-[place]ake [place]; Combo Route) route daily. Active Evening [place] Oil 500 mg Capsule Take 500 mg by mouth daily. Active Biotin 10,000 mcg Capsule Take 10,000 mcg by mouth daily. Active collagen, bovine, 100 % Powder Apply 100 Packets to affected area daily. Active lisinopril (PRINIVIL) 10 mg tablet Take 1 Tablet (10 mg) by mouth daily. 90 Tablet 10/28/2016 Active atorvastatin (LIPITOR) 10 mg tablet TAKE 1 TABLET BY MOUTH LATE IN THE DAY 90 Tablet 1 02/11/2017 Active Active Problems Patient Care Coordination No te Formatting of this note migh t be different from the original. Radio Rigger Agustin Felton MD. (MACRINA) Problem Noted Date Diagnosed Date CAD 10/12/2016 Overview (10/12/2016): Coronary calcium score 621 09/25 Encounters Date Type Department Care Team Description 08/08/2024 External Device Data [facility] Provider, Abstract 08/02/2024 External Device Data [facility] Provider, Abstract from Last 3 Months Family History Medical History Relation Name Comments Cancer Father Heart Attack Father Heart Disease Father Arrhythmia Mother Diabetes Mother Heart Disease Mother Heart Surgery Mother High Cholesterol Mother Hypertension Mother Pacemaker Mother Stroke Mother Relation Name Status Comments Father Mother Social History Tobacco Use Types Packs/Day Years Used Date Smoking Tobacco: Never Alcohol Use Standard Drinks/Week Comments Yes 1 (1 standard drink = 0.6 oz pure alcohol) 1 -2 glasses of 3-4 days a week Comments No Sex and Gender Information Value Date Recorded Sex Assigned at Not on file 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 Gender Identity Not on file Sexual Orientation Not on file Last Filed Vital Signs Vital Sign Reading Time Taken Comments Blood Pressure 128/86 10/12/2016 10:15 AM CDT Pulse 75 10/12/2016 10:15 AM CDT Temperature - - Respiratory Rate - - Oxygen Saturation 97% 10/12/2016 10:15 AM CDT Inhaled Oxygen Concentration - - Weight 53.8 kg (118 lb 8 oz) 10/12/2016 10:15 AM CDT Height 154.9 cm (5' 1 ) 10/12/2016 10:15 AM CDT Body Mass Index 22.39 10/12/2016 10:15 AM CDT Plan of Treatment Health Maintenance Due Date Last Done Comments DTAP/TDAP/TD VACCINES (1 - Tdap) 1977 BREAST CANCER SCREENING 1998 COLORECTAL SCREENING 2003 Colorectal Cancer Screening 2003 FIT-DNA Q 3 years 2003 FIT/FOBT Q 1 year 2003 Flex Sig/CT Colonography Q 5 years 2003 PNEUMOCOCCAL VACCINE 50+ YEARS (1 of 1 - PCV) 06/27/20 08 ZOSTER VACCINE (1 of 2) 2008 RSV VACCINE (60+ or ) (1 - Risk 60-74 years 1-dose series) 2018 OSTEOPOROSIS SCREENING 2023 INFLUENZA VACCINE (#1) 2024 Insurance Care Teams Lead Applier Relationship Specialty Start Date End Date Bienvenido Girard MD [address] [place] [address] PCP - General Family Practice 09/22/16
== END 2024-09-19 13:59 | disposition home or self-care (01) ==
LOC: ANHSURGERY 14:02
PROVIDERS: PCP Family Medicine; Visit Provider Urology
DX: Z01.818 Encounter for other preprocedural examination (principal); N81.4 Uterovaginal prolapse, unspecified; E78.5 Hyperlipidemia, unspecified
CPT/HCPCS: 36415; 80053; 85025; 85610; 85730; 86850; 86900; 86901; 93005

== ENCOUNTER 2024-10-02 00:48 | Day surgery (SDC) | payer BC, SELFPAY ==
[2024-09-18 13:04] VITALS: BMI 21.9
[2024-09-19 14:19] VITALS: BP 129/68; PULSE 75; RESP 16; TEMP 36.5; O2SAT 100
--- NOTE | 2024-09-19 14:38 | PC.NURSE ---
Report to the Outpatient Waiting Room, entrance under the green pavilion located off [facility], at time ___1000am____ on date __10/02/24 . Planned Procedure Time: __1200pm .? Time changes happen often and if your time is changed the preop area will call you the afternoon before. - You and your visitor will be asked to self-screen and do not enter if you have any COVID symptoms. Please call surgeon if you need to reschedule. - A mask is optional within the hospital at this time. Patients may have clear liquids (water, carbonated beverages, clear teas, apple juice) until 3 hours prior to surgery with a maximum of 20 ounces. - No food from midnight until time of surgery and no smoking, or chewing tobacco (or any form of nicotine). No chewing gum, candy or mints. (0900am) Take only the following medications with a SIP of water on the morning of surgery: ____Tramadol and Cyclobenziprine if needed DO NOT STOP ANY OF YOUR OTHER PRESCRIPTION MEDICATIONS PRIOR TO SURGERY EXCEPT THE FOLLOWING Hold all vitamins and supplements for 3 days per anesthesiologist. Date to take last dose 09/28/24 Medications to discontinue per physician ____None Date to take last dose None Please no make-up, nail icelandic, hairspray, perfume, deodorant, or body powder the day of surgery.? No jewelry (including any body piercings) or valuables the day of surgery, leave them at home.? Please take a shower or bath the night before, or the morning of, surgery with an antibacterial soap.? Wear comfortable, loose fitting clothing.? - Jewelry must be removed prior to entering the operating room.? Rings and piercings that are not removed may be cut off. - The hospital will not accept responsibility for valuables.? - Please leave all valuables, including medications, at home the day of surgery. If you are going home after surgery, a licensed taxi cab driver must drive you home.? - NO public transportation without another adult if you receive anesthesia. - We recommend that an adult stay with you for 24 hours following discharge. - We also recommend that you do not drive, make important decision, drink alcoholic beverages, or take any drugs that were not prescribed by your health care provider for at least 24 hours after your discharge time. Follow any additional instructions given to you from your surgeon. Telephone instructions given to _patient and asked if any additional questions and then verbalized understanding. Patient advised to call surgeon office or pre surgery nurse liaison [phone] if any additional questions.
--- NOTE | 2024-09-30 15:07 | P.HP_ITS ---
H&P: HPI History of Present Illness Date/Time: 09/30/24 15:07 Chief Complaint: POP/ADRIANA Narrative: Note:?Alice White is a 63-year-old female who presents for a clinic visit due to a bulge in the pelvic area. She is seen at the request of her produce specialist ??As well as her primary care. She reports that the bulge has been present for a while and is getting worse. Walking on the treadmill exacerbates the issue, causing her to stop frequently to readjust. She denies any problems with urination but mentions that she sometimes has to push the bulge back up. She experiences leakage if she sneezes more than three times. She also reports occasional difficulty with bowel movements, requiring her to push the bulge back in. She still has her uterus and has no issues with blood in the urine or infections. Sexual activity is not currently happening but is still a consideration for her. She has met her deductible for the year and has had several medical procedures, including a breast biopsy in July and a cardiac catheterization following a stress test, which came out ?normal A bladder scan was completed to evaluate for urinary retention as possible cause for voiding symptoms. Review of Systems Review of Systems: All systems reviewed & are unremarkable except as noted in HPI and below PMFSH Surgical History Surgical History S/P wrist surgery Hx of rotator cuff surgery bilateral Mcintosh teeth removed Family History Family History Mother Hypertension Family history of elevated blood lipids Family history of diabetes mellitus in first degree relative Family history of coronary artery disease Social History Social History Smoking status: Never smoker Second hand tobacco smoke exposure: No Alcohol intake: current Drinks per week: 2 Substance use: never Do You Feel Safe in your Home?: Yes Lack of Transportation: No Lack of Food: Never True Current Housing: I Have Housing Concerned About Future Housing: No Difficulty Paying Gas/Electric Bills: No Difficulty Paying for Meds: No Currently Unemployed: No Education: High School Diploma/GED Difficulty w/ Childcare or Family Care: No Living arrangements: with family Additional living arrangements comments: Spiritual care concerns: No Meds Home Medications and Allergies Home Medications ?Medication ?Instructions ?Recorded ?Confirmed ?Type cholecalciferol (vitamin D3) 25 25 mcg PO DAILY 04/14/21 09/19/24 History mcg (1,000 unit) capsule tramadol 50 mg tablet 50 mg PO Q6H PRN pain 04/14/21 09/19/24 History vitamin B complex 1 cap PO DAILY 04/14/21 09/19/24 History vitamin E 200 unit capsule 200 unit PO DAILY 04/14/21 09/19/24 History ascorbic acid (vitamin C) 1,000 mg 1,000 mg PO DAILY 09/19/24 09/19/24 History tablet,extended release (C Complex) atorvastatin 80 mg tablet 80 mg PO QPM 09/19/24 09/19/24 History budesonide 3 mg 3 mg PO DAILY 09/19/24 09/19/24 History capsule,delayed,extended release calcium carbonate (Calcium 600) 300 mg PO DAILY 09/19/24 09/19/24 History cyclobenzaprine 10 mg tablet 10 mg PO Q8H PRN anxiety 09/19/24 09/19/24 History soy isoflavone-black cohosh 1 cap PO DAILY 09/19/24 09/19/24 History root-magnolia bark 155 mg capsule (Estroven) scopolamine base 1 mg over 3 days 1 patch transdermal Q3D PRN 09/29/24 Rx transdermal patch surgery #1 ea Allergies Allergy/AdvReac Type Severity Reaction Status Date / Time No Known Allergies Allergy Verified 09/26/24 15:41 Exam Narrative: anterior wall +1 apex at 0 + urethral mobility Assessment and Plan Assessment and plan (1) Uterine prolapse: Code(s): N81.4 - Uterovaginal prolapse, unspecified Status: Acute (2) ADRIANA (stress urinary incontinence, female): Code(s): N39.3 - Stress incontinence (female) (male) Status: Acute Plan Midline cystocele (N81.11) Incomplete uterovaginal prolapse (N81.2) Current Plans We discussed the treatment options for pelvic organ prolapse including observation, pessary usage, and surgery was well as the specific risks and benefits.? She opts for a sacral colpopexy.? We specifically discussed the utilization of robotic sacral colpopexy.? She understands the risks of bleeding, infection, recurrence or prolapse, mesh exposure, damage to the bowel or urinary tract, open conversion, de david urinary urgency, urinary retention, post- operative stress urinary incontinence, dyspareunia, back pain, diskitis and risks of anesthesia.? In addition, she was provided written information on the etiology and treatment of pelvic organ prolapse. We discussed performing a concomitant mid-urethral sling procedure for the treatment of her existing or occult stress urinary incontinence.? We discussed the risks of bleeding, infection, failure to correct incontinence, damage to the urinary tract, vaginal mesh extrusion, urinary tract mesh erosion, obstructive voiding requiring a secondary procedure, de david or worsening irritative voiding symptoms, post-operative hip and leg pain, and the risks of anesthesia.? She wishes to proceed. Pt Education - Prolapse: discussed with patient and provided information. Pt Education - Urethral Sling: discussed with patient and provided information. EXAMINATION OF PELVIS IN FEMALE (20998) (Concrete Bucket Loader present) Stress incontinence, female (N39.3) Current Plans THE PATIENT WILL BE SCHEDULED FOR A URODYNAMIC STUDY FOR THE EVALUATION OF DETRUSOR/URETHRAL FUNCTION Perform Urodynamic study in the standing position if able Perform Urodynamic study with vaginal pack/pessary No follow up after urodynamics needed. Will call: discussed with patient and provided information. Pt Education - [employer] and [employer] Instructions: discussed with patient and provided information. SIMPLE URINALYSIS (79413) BLADDER SCAN WITH ASSESSMENT OF POST-VOID RESIDUAL PER REGIME ([id number]) Note:?ASSESSMENT: - Pelvic organ prolapse - Stress urinary incontinence PLAN: - We discussed the treatment options for pelvic organ prolapse, including observation, pessary usage, and surgery, as well as the specific risks and benefits of each approach. She opts for a sacral colpopexy. We specifically discussed the utilization of robotic sacral colpopexy. She understands the risks of bleeding, infection, recurrence or prolapse, mesh exposure, damage to the bowel or urinary tract, open conversion, de david urinary urgency, urinary retention, post-operative stress urinary incontinence, dyspareunia, back pain, diskitis, and risks of anesthesia. In addition, she was provided written information on the etiology and treatment of pelvic organ prolapse. After an extensive discussion, she agrees to proceed with surgery. - We discussed the treatment options for stress urinary incontinence, including pelvic floor muscle rehabilitation, transurethral bulking agents, and mid- urethral sling procedures. She is most interested in the latter. We discussed the alternatives, benefits, and risks. We discussed specifically the risks of bleeding, infection, failure to correct incontinence, damage to the urinary tract, vaginal mesh extrusion, urinary tract mesh erosion, obstructive voiding requiring a secondary procedure, de david or worsening irritative voiding symptoms, post-operative hip and leg pain, and the risk of anesthesia. We also discussed that treatment of stress incontinence is unlikely to improve overactive bladder symptoms if present. She was also counseled on post-operative activity restrictions. She wishes to proceed.
[2024-10-02] VITALS (11 sets, daily range): BP systolic 98–141; BP diastolic 55–75; PULSE 61–74; RESP 12–20; TEMP 36.2–37; O2SAT 95–100
--- OUTSIDE RECORDS SUMMARY | 2024-10-02 00:50 | XMS_ITS | Referral Summary ---
Author Organization [address] lt Address [address] [place] [address] [place] [address] Care Team Providers Care Hemstitcher Name Role Phone Bienvenido Girard MD Primary Care Provider [phone] Rodriguez Key MD Unavailable [phone] Encounters Date Type Department Care Team Description 09/19/2024 Orders Only [facility] Health Information Management [address] [place] [id number] Scanning, Provider 08/10/2024 8:20 AM WAFER POLISHING WORKER - 08/10/2024 11:59 PM WAFER POLISHING WORKER Hospital Encounter [facility] - Breast Imaging [address] [place], [place] [id number] Encounter for screening mammogram for breast cancer; Abnormal mammogram Discharge Disposition: Discharge to home or self care 08/10/2024 8:30 AM WAFER POLISHING WORKER Office Visit [facility] [address] [place] [phone] Amina Fleming NP Fibroadenoma of breast, left (Primary Dx); Encounter for screening mammogram for malignant neoplasm of breast 08/09/2024 Telephone [facility] - Breast Imaging [address] [place] [phone] Bernabe Matta MA Appointment Reminder Call from Last 3 Months Allergies No known active allergies Medications vitamin E 600 unit capsule Take 1 capsule (600 Units total) by mouth daily Active vitamin B complex capsule Take 1 capsule by mouth daily Active cholecalciferol (VITAMIN D-3) 2000 unit capsule Take 1 capsule (2,000 Units total) by mouth daily 30 capsule 4 Active calcium-vits Z0-I-N0-mineral s 166.75 mg- 166.75 unit capsule Take by mouth Active atorvastatin (LIPITOR) 80 mg tablet Take 1 tablet (80 mg total) by mouth daily 90 tablet 3 4 02/22/20 25 Active dicyclomine (BENTYL) 10 mg capsule Take 1-2 pills up to 4 times daily as needed for problematic diarrhea and/or cramping. Can take 10-15 minutes prior to eating to prevent problematic symptoms after eating. 120 capsule 3 4 Active ascorbic acid (vitamin C) 1,000 mg tablet Acti ve aspirin (Kenna Low Dose Aspirin) 81 mg enteric coated tablet Active coenzyme Q10 200 mg capsule Activ e traMADoL (ULTRAM) 50 mg tabletIndicatio ns:Chronic midline low back pain without sciatica Take 1 tablet (50 mg total) by mouth every 6 (six) hours as needed for pain for pain 180 tablet 5 Active budesonide EC (ENTOCORT EC) 3 mg 24 hr capsuleIndicati ons:Microscopic colitis Take 3 capsules (9 mg total) by mouth every morning 126 capsule 5 10/10/19 25 Active Active Problems Problem Noted Date Diagnosed Date [...] 09/02/2022 Assessment & Plan (09/02/2022 8:35 AM WAFER POLISHING WORKER): Continue to avoid any fragrant detergents/lotions/soaps. Will follow up with collar stitcher as schedule 09/07/22. Pain of left upper [...] healthier, we can set up appointment with supply controller/donkey doctor. 3. Have an active lifestyle, strive for [...] patient. Assessment & Plan (09/02/2022 8:27 AM WAFER POLISHING WORKER): Discussed healthy diet and importance of regular [...] monitor. Assessment & Plan (09/02/2022 8:28 AM WAFER POLISHING WORKER): Atorvastatin 10 mg daily. Denies any medication side effects. Will repeat labs and make additional changes as needed. Assessment & Plan (02/12/2022 8:14 AM CDT): 12/18/19 EL=954 HDL=77 BP=176 LDL=42 TC/HDL=1.9 12/13/20 FN=765 HDL=70 TG=43 LDL=82 TC/HDL=2.0 NON HDL=91 08/12/21 XX=839 HDL=61 TG=41 LDL=76 TC/HDL=2 NONHDL=84 Lipid panel [...] mg/dL Assessment & Plan (09/12/2020 9:55 AM WAFER POLISHING WORKER): Atorvastatin 10mg daily. 04/20/18 GJ=388 HDL=73 TG=59 LDL=85 TC/HDL=2.4 12/18/19 MO=089 HDL=77 HK=803 LDL=42 TC/HDL=1.9 The 10-year ASCVD risk score [...] & Plan (12/18/2019 9:14 AM CDT): 04/20/18 GF=922 HDL=73 TG=59 LDL=85 TC/HDL=2.4 12/18/19 ZI=605 HDL=77 PL=764 LDL=42 TC/HDL=1.9 Now doing intermittent fasting diet. [...] monitor. Assessment & Plan (09/02/2022 8:36 AM WAFER POLISHING WORKER): Stable; continues tramadol 50 mg bid prn. [...] flags. Assessment & Plan (09/12/2020 10:26 AM WAFER POLISHING WORKER): Images from the original note were not included. Tramadol 50mg #28 last filled 08/30/20. Taking bid prn Encouraged otc tylenol/ibuprofen prn back pain. Discussed ice, gentle ROM, increased activity/core strengthening & other non pharm methods of pain relief. Denies bowel/bladder dysfunction. Denies cauda equina. Reviewed red flags. Sent to [facility]. Assessment & Plan (12/18/2019 8:49 AM CDT): [...] SBE. Assessment & Plan (09/12/2020 10:25 AM WAFER POLISHING WORKER): Mammogram order given; will call with results when received. Encouraged to perform monthly SBE. BMI 21.0-21.9, adult 12/18/2019 022 Assessment & Plan (09/12/2020 9:54 AM WAFER POLISHING WORKER): Discussed healthy diet and importance of regular physical activity. BMI is acceptable for this patient. Assessment & Plan (12/18/2019 8:47 AM CDT): Discussed healthy diet and importance of regular physical activity. BMI is acceptable for this patient. Encounter for screening colonoscopy 03/08/2018 12/18/2019 Overview (03/08/2018): Added automatically from request for surgery [id number] Distal radius fracture, right 07/28/2017 12/17/2019 Feces contents abnormal 11/25/2013 06/0 01/2020 Overview (10/14/2016): ABN FIND-STOOL CONTENTS Constipation [...] on file Legal Sex Female 5:53 PM WAFER POLISHING WORKER Gender Identity Female 08/12/2021 7:52 AM WAFER POLISHING WORKER Sexual Orientation Straight 08/12/2021 7: 52 AM WAFER POLISHING WORKER Last Filed Vital Signs Vital Sign Reading Time Taken Comments Blood Pressure 146/80 08/10/2024 8:27 AM WAFER POLISHING WORKER Pulse 58 08/10/2024 8:27 AM WAFER POLISHING WORKER Temperature 36.5 C (97.7 F) 05/09/2024 7:51 AM CDT Respiratory Rate 18 08/10/2024 8:27 AM WAFER POLISHING WORKER Oxygen Saturation 98% 08/10/2024 8:27 AM WAFER POLISHING WORKER Inhaled Oxygen Concentration - - Weight 53.5 kg (118 lb) 08/10/2024 8:27 AM WAFER POLISHING WORKER Height 154.9 cm (5' 0.98 ) 08/10/2024 8:27 AM CS T Body Mass Index 22.31 08/10/2024 8:27 AM WAFER POLISHING WORKER Plan of Treatment Not on file Medical Devices Implanted Type Area Room Service Bellhop Device Identifier Shelf Expiration Date Model / Serial / Lot Plate Bone Acu-Loc 2 Narrow L51 Mm Radius Right Distal Volar Nonsterile Silver 2.3 Mm Screw - [id number] Implanted:Qty: 1 on 08/05/2017 by Agustin Garcia III, MD at [facility] ABB [id number] / / Screw Bone L12 Mm Od3.5 Mm Elbow Locking Hexalobe Sterile - [id number] Implanted:Qty: 1 on 08/05/2017 by Agustin Garcia III, MD at [facility] ABB [id number] / / Peg Bone 22mm 2.3mm [facility] Lkng - [id number] Implanted:Qty: 2 on 08/05/2017 [facility]-[id number] / / Screw Bone Titanium Full Thread L20 Mm Od2.3 Mm Cortical Lock Nonsterile Gold - [id number] Implanted:Qty: 1 on 08/05/2017 by [id number] / / Peg Fixation Acu-Loc Titanium L18 Mm Od2.3 Mm Cortical Smooth Lock Nonsterile Bronze - [id number] Implanted:Qty: 1 on 08/05/2017 by [facility]-[id number] / / Peg Fixation Acu-Loc Titanium L20 Mm Od2.3 Mm Cortical Smooth Lock Nonsterile Bronze - [id number] Implanted:Qty: 1 on 08/05/2017 by [facility]-S2320 / / Screw Bone L12 Mm Od3.5 Mm Nonlock Hexalobe Head Nonsterile - [id number] Implanted:Qty: 1 on 08/05/2017 by [facility] [id number] / / Screw Bone L10 Mm Od3.5 Mm Elbow Locking Hexalobe Sterile - [id number] Implanted:Qty: 1 on 08/05/2017 by [facility] [id number] / / Peg Fixation Acu-Loc Titanium L20 Mm Od2.3 Mm Cortical Smooth Lock Nonsterile Bronze - [id number] Implanted:Qty: 1 on 08/05/2017 by [facility]-S2320 / / [employer] Eviva 13cm Identifier Biopsy Site Jcktp-[id number] - [id number] Implanted:Qty: 1 on 08/02/2023 by Mo Escobedo MD at [facility] Left: Breast [employer] [id number] 02/16/2024 [facility] [place]13 / / [id number] [employer] Angio-Seal Vip 6fr Closere Device [id number] - [id number] Implanted:Qty: 1 on 02/22/2024 by Meseret Jin MD at [facility] [employer] 09/30/2024 [id number] / / [id number] Explanted Type Area Room Service Bellhop Device Identifier Shelf Expiration Date Model / Serial / Lot Screw Bone Acu-Loc 2 Titanium L22 Mm Od2.3 Mm Cortical Nontoggle Thread Nonsterile Silver - [id number] Implanted:Qty: 1 Explanted:Qty: 1 on 08/05/2017 at [facility] [employer] [id number] / / Procedures Procedure Name Priority Date/Time Associated Diagnosis Comments SCAN - LABS 09/19/2024 SCREENING MAMMOGRAM BILATERAL W SAM Schedule Routine, Read Routine (OP Routine) 08/10/2024 9:34 AM WAFER POLISHING WORKER Encounter for screening mammogram for breast cancer [...] Recently Relevant to Health Maintenance Results * SCAN - LABS (09/19/2024) us Provider Scanning Final Result * Screening Mammogram Bilateral W Sam (08/10/2024 9:34 AM WAFER POLISHING WORKER) Anatomical Region Laterality Modality Breast Bilateral Mammography Narrative 08/10/2024 2:09 PM WAFER POLISHING WORKER Mammogram Technique: Bilateral Digital Breast Tomosynthesis, Bilateral C-view 2D Screening mammogram. Views obtained: bilateral craniocaudal and bilateral mediolateral oblique. Computer Aided Detection was performed. Mammogram Findings: The present examination has been compared to prior imaging studies performed at [facility]. [facility] on 03/07/2022, 05/22/2023 and 06/24/2023. There are [...] to prior imaging studies performed at [facility]. [facility] on 03/07/2022, 05/22/2023 and 06/24/2023. There are [...] Nacho Sue, - 04/24/2024 12:35 PM CDT [facility] Patient Name: Alice Castillo Procedure Date: 04/24/2024 12:35PM Date of : 1960 Admit Type: Outpatient Age: 63 Gender: Female Attending MD: Nacho Sue D.O. Room: [facility] ENDOSCOPY ROOM 2 Note Status: Finalized Patient [...] to home. - Benefiber or Metamucil q.d.. Callix Brasil probiotic per labelinstructions. indefinitely. - Repeat colonoscopy [...] under direct vision. The Pediatric Colonoscope [id number] was introducedthrough the anus and advanced to [...] 12:35 PM Procedure Code(s): --- Professional --- 81814, Colonoscopy, flexible; with biopsy, single or multiple --- Technical --- 19276, Colonoscopy, flexible; with biopsy, single or multiple Diagnosis Code(s): --- Professional --- R10.9, Unspecified abdominal pain R19.7, Diarrhea, unspecified --- Technical --- R10.9, Unspecified abdominal pain R19.7, Diarrhea, unspecified CPT copyright 2020 [employer]. All rights reserved. The codes documented in this report are preliminary and upon senior accounts payable specialist reviewmay be revised to meet current compliance requirements. Recognized by the [employer] for promoting quality [...] with given history of: post-menopausal osteoporosis prevention Room Service Bellhop/Model: TabUp (S/N 75083) CLINICAL INFORMATION: Current height: 60.3 inches Maximum [...] Frazier M.D. MF: LUIS EDUARDO Report ID: [id number] Reading Location: [address] Note Nicolas Frazier MD - 12/01/2023 EXAM DESCRIPTION: DEXA AXIAL SKELETON BONE DENSITY 1 OR MORE SITES REASON FOR STUDY: 63 y/o year old F with given history of: post-menopausal osteoporosis prevention Room Service Bellhop/Model: TabUp (S/N 33120) CLINICAL INFORMATION: Current height: 60.3 inches Maximum [...] Frazier M.D. MF: LUIS EDUARDO Report ID: [id number] Reading Location: [place] [address] [facility] RECEPTIONIST IMG DXA PROCEDURES Final Re sult * Hepatitis C (HCV) RNA PCR, quantitative (12/18/2019 9:24 AM CDT) Pathologist [facility] HCV RNA IU/mL <15 NOT DETECTED NOT DETECTED IU/mL [facility] HCV RNA log IU/mL <1.18 NOT DETECTED NOT DETECTED Log IU/mL [facility] Comment: This test was performed using Real-Time Polymerase Chain Reaction. Reportable Range: 15 IU/mL to 100,000,000 IU/mL (1.18 Log IU/mL to 8.00 Log IU/mL). The analytical performance characteristics of this assay have been determined by [facility]. The modifications have not been cleared or approved by the FDA. This assay has been validated pursuant to the CLIA regulations and is used for clinical purposes. For more information on this test, go to: http://education.Electronifie/faq/MQC23z1 (This link is being provided for informational/ educational purposes only.) 12/18/2019 9:24 AM CDT 12/18/2019 9:26 AM CDT Narrative [facility] - 12/19/2019 3:27 PM CDT FASTING:YES FASTING: YES Vanessa Rasmussen NP LAB MICROBIOLOGY - GENERA L ORDERABLES Final Result [facility] [address] [place] [address] * PAP SMEAR WITH HPV (04/24/2016) Pathologist [facility] Pap smear Normal Comment:Dr Fuentes at [facility] us Historical Provider HEALTH MAINTENANCE Final Result from Last 3 Months or Most Recently Relevant to Health Maintenance Insurance [employer] OOS BLUE ACCESS OOS * Guarantor: ALICE CASTILLO Account Type Relation to Patient Date of Phone Billing Address Personal/Family Self Advance Directives For more information, please contact: [phone] * Full Code (Latest Code Status on File) Date Activated Date Inactivated Comments 04/24/2024 12:37 PM 04/24/2024 7:43 PM * Full Code Date Activated Date Inactivated Comments 04/24/2024 12:37 PM 04/24/2024 12:37 PM * Full Code Date Activated Date Inactivated Comments 05/30/2018 7:42 AM 05/30/2018 11:32 AM * Full Code Date Activated Date Inactivated Comments 05/30/2018 7:42 AM 05/30/2018 7:42 AM Care Teams Hemstitcher Relationship Specialty Start Date End Date Bienvenido Girard MD [address] [place] [address] PCP - General 10/09/16 Rodriguez Key MD [address] [place] [address] Referring Physician Obstetrics and Gynecology 06/24/23
--- OUTSIDE RECORDS SUMMARY | 2024-10-02 00:51 | XMS_ITS | Clinical Summary ---
Author Organization [facility] Address [address] [place] [address] Phone Care Team Providers Care Behavioral Therapy Coordinator Name Role Phone Bienvenido Girard MD Primary Care Provider [phone] Allergies No known active allergies Medications traMADol (ULTRAM) 50 mg tablet Take 50 mg by mouth 4 times daily Make take every 6 hrs. As needed. 0 09/08/2016 Active pyridoxine, vitamin B6, (VITAMIN B6) 100 mg Tablet Take 50 mg by mouth daily. Active CHOLECALCIFEROL , VITAMIN D3, (CHOLECALCIFERO L, VITD3,, BULK,) 2,400 unit/mL Liquid 5,000 Units by [facility]Non-Jake g; Combo Route) route daily. Active MAGNESIUM AMINO ACID CHELATE (MAG AMINO ACID CHELATE, BULK,) 20 % Powder 325 mg by [facility]Non-Jake g; Combo Route) route daily. Active Evening Walsh Oil 500 mg Capsule Take 500 mg [...] migh t be different from the original. Wooden Boat Builder Agustin Felton MD. (MACRINA) Problem Noted Date [...] on file Legal Sex Female 3:31 PM BAIT MAKER Gender Identity Not on file Sexual Orientation [...] INFLUENZA VACCINE (#1) 2024 Insurance Care Teams Behavioral Therapy Coordinator Relationship Specialty Start Date End Date Bienvenido Girard MD [address] [place] [address] PCP - General Family Practice 09/22/16
--- OUTSIDE RECORDS SUMMARY | 2024-10-02 00:51 | XMS_ITS | Clinical Summary ---
Author Organization [address] lt Address [address] [place] [address] [place] [address] Care Team Providers Care Rn Call Center Name Role Phone Bienvenido Girard MD Primary Care Provider [phone] Rodriguez Key MD Unavailable [phone] Allergies No known active allergies Medications vitamin E 600 unit capsule Take 1 capsule (600 Units total) by mouth daily Active vitamin B complex capsule Take 1 capsule by mouth daily Active cholecalciferol (VITAMIN D-3) 2000 unit capsule Take 1 capsule (2,000 Units total) by mouth daily 30 capsule 4 Active calcium-vits E0-S-Y2-mineral s 166.75 mg- 166.75 unit capsule Take [...] 09/02/2022 Assessment & Plan (09/02/2022 8:35 AM SPEECH LANGUAGE PATHOLOGIST PRN): Continue to avoid any fragrant detergents/lotions/soaps. Will follow up with wood drilling machine operator as schedule 09/07/22. Pain of left upper [...] healthier, we can set up appointment with registered nurse practitioner/packing machine tender. 3. Have an active lifestyle, strive for [...] patient. Assessment & Plan (09/02/2022 8:27 AM SPEECH LANGUAGE PATHOLOGIST PRN): Discussed healthy diet and importance of regular [...] monitor. Assessment & Plan (09/02/2022 8:28 AM SPEECH LANGUAGE PATHOLOGIST PRN): Atorvastatin 10 mg daily. Denies any medication side effects. Will repeat labs and make additional changes as needed. Assessment & Plan (02/12/2022 8:14 AM CDT): 12/18/19 GH=363 HDL=77 YN=522 LDL=42 TC/HDL=1.9 12/13/20 DC=003 HDL=70 TG=43 LDL=82 TC/HDL=2.0 NON HDL=91 08/12/21 GW=087 HDL=61 TG=41 LDL=76 TC/HDL=2 NONHDL=84 Lipid panel [...] red flags. The 10-year ASCVD risk score (Iselingisela JOHNSON Jr., et al., 2013) is: 3.4% Values used to calculate the score: Age: 61 years Sex: Female Is Non- : No Diabetic: No Tobacco smoker: No Systolic Blood Pressure: 126 mmHg Is BP treated: No HDL Cholesterol: 61 mg/dL Total Cholesterol: 145 mg/dL Assessment & Plan (09/12/2020 9:55 AM SPEECH LANGUAGE PATHOLOGIST PRN): Atorvastatin 10mg daily. 04/20/18 WM=244 HDL=73 TG=59 LDL=85 TC/HDL=2.4 12/18/19 WM=533 HDL=77 UQ=508 LDL=42 TC/HDL=1.9 The 10-year ASCVD risk score [...] & Plan (12/18/2019 9:14 AM CDT): 04/20/18 KP=801 HDL=73 TG=59 LDL=85 TC/HDL=2.4 12/18/19 FD=940 HDL=77 XZ=850 LDL=42 TC/HDL=1.9 Now doing intermittent fasting diet. [...] monitor. Assessment & Plan (09/02/2022 8:36 AM SPEECH LANGUAGE PATHOLOGIST PRN): Stable; continues tramadol 50 mg bid prn. [...] flags. Assessment & Plan (09/12/2020 10:26 AM SPEECH LANGUAGE PATHOLOGIST PRN): Images from the original note were not [...] SBE. Assessment & Plan (09/12/2020 10:25 AM SPEECH LANGUAGE PATHOLOGIST PRN): Mammogram order given; will call with results when received. Encouraged to perform monthly SBE. BMI 21.0-21.9, adult 12/18/2019 022 Assessment & Plan (09/12/2020 9:54 AM SPEECH LANGUAGE PATHOLOGIST PRN): Discussed healthy diet and importance of regular physical activity. BMI is acceptable for this patient. Assessment & Plan (12/18/2019 8:47 AM CDT): Discussed healthy diet and importance of regular physical activity. BMI is acceptable for this patient. Encounter for screening colonoscopy 03/08/2018 12/18/2019 Overview (03/08/2018): Added automatically from request for surgery [id number] Distal radius fracture, right 07/28/2017 12/17/2019 Feces contents abnormal 11/25/201301/2020 Overview (10/14/2016): ABN FIND-STOOL CONTENTS Constipation 11/25/2013 12/18/2019 Overview (10/14/2016): CONSTIPATION NOS Encounters Date Type Department Care Team Description 09/19/2024 Orders Only [facility] Health Information Management [address] [place] [address] Scanning, Provider 08/10/2024 8:30 AM SPEECH LANGUAGE PATHOLOGIST PRN Office Visit [facility] Floor [address] [place] [address] Amina Fleming NP Fibroadenoma of breast, left (Primary Dx); Encounter for screening mammogram for malignant neoplasm of breast 08/10/2024 8:20 AM SPEECH LANGUAGE PATHOLOGIST PRN - 08/10/2024 11:59 PM SPEECH LANGUAGE PATHOLOGIST PRN Hospital Encounter [facility] [address] [place] [address] Encounter for screening mammogram for breast cancer; Abnormal mammogram Discharge Disposition: Discharge to home or self care 08/09/2024 Telephone [facility] [address] [place] [address] Bernabe Matta MA Appointment Reminder Call from [...] on file Legal Sex Female 5:53 PM SPEECH LANGUAGE PATHOLOGIST PRN Gender Identity Female 08/12/2021 7:52 AM SPEECH LANGUAGE PATHOLOGIST PRN Sexual Orientation Straight 08/12/2021 7: 52 AM SPEECH LANGUAGE PATHOLOGIST PRN Obstetrics History Para Term AB IAB SAB Ectopic Multiple Livin g Live Births 1 1 1 Date Outcome GA Total Labor Labor/2nd/3rd Weight Sex Type Anes PTL Maranda A1 A5 Name Clin Term Last Filed Vital Signs Vital Sign Reading Time Taken Comments Blood Pressure 146/80 08/10/2024 8:27 AM SPEECH LANGUAGE PATHOLOGIST PRN Pulse 58 08/10/2024 8:27 AM SPEECH LANGUAGE PATHOLOGIST PRN Temperature 36.5 C (97.7 F) 05/09/2024 7:51 AM CDT Respiratory Rate 18 08/10/2024 8:27 AM SPEECH LANGUAGE PATHOLOGIST PRN Oxygen Saturation 98% 08/10/2024 8:27 AM SPEECH LANGUAGE PATHOLOGIST PRN Inhaled Oxygen Concentration - - Weight 53.5 kg (118 lb) 08/10/2024 8:27 AM SPEECH LANGUAGE PATHOLOGIST PRN Height 154.9 cm (5' 0.98 ) 08/10/2024 8:27 AM CS T Body Mass Index 22.31 08/10/2024 8:27 AM SPEECH LANGUAGE PATHOLOGIST PRN Plan of Treatment Health Maintenance Due Date [...] history exists Medical Devices Implanted Type Area Mental Health Assistant Device Identifier Shelf Expiration Date Model / Serial / Lot Plate Bone Acu-Loc 2 Narrow L51 Mm Radius Right Distal Volar Nonsterile Silver 2.3 Mm Screw - [id number] Implanted:Qty: 1 on 08/05/2017 by Agustin Garcia III, MD at [facility] [employer] [id number] / / Screw Bone L12 Mm Od3.5 Mm Elbow Locking Hexalobe Sterile - [id number] Implanted:Qty: 1 on 08/05/2017 by Agustin Garcia III, MD at [facility] [employer] [id number] / / Peg Bone 22mm 2.3mm Aclc Smth Lkng - [id number] Implanted:Qty: 2 on 08/05/2017 by Agustin Garcia III, MD at [facility] [employer] CO-[id number] / / Screw Bone Titanium Full Thread L20 Mm Od2.3 Mm Cortical Lock Nonsterile Gold - [id number] Implanted:Qty: 1 on 08/05/2017 by Agustin Garcia III, MD at [facility] [employer] CO-[id number] / / Peg Fixation Acu-Loc Titanium L18 Mm Od2.3 Mm Cortical Smooth Lock Nonsterile Bronze - [id number] Implanted:Qty: 1 on 08/05/2017 by Agustin Garcia III, MD at [facility] [employer] CO-[id number] / / Peg Fixation Acu-Loc Titanium L20 Mm Od2.3 Mm Cortical Smooth Lock Nonsterile Bronze - [id number] Implanted:Qty: 1 on 08/05/2017 by Agustin Garcia III, MD at [facility] [employer] CO-[id number] / / Screw Bone L12 Mm Od3.5 Mm Nonlock Hexalobe Head Nonsterile - [id number] Implanted:Qty: 1 on 08/05/2017 by Agustin Garcia III, MD at [facility] [employer] [id number] / / Screw Bone L10 Mm Od3.5 Mm Elbow Locking Hexalobe Sterile - [id number] Implanted:Qty: 1 on 08/05/2017 by Agustin Garcia III, MD at [facility] [id number] / / Peg Fixation Acu-Loc Titanium L20 Mm Od2.3 Mm Cortical Smooth Lock Nonsterile Bronze - [id number] Implanted:Qty: 1 on 08/05/2017 by Agustin Garcia III, MD at [facility] CO-S2320 / / [employer] Eviva 13cm Identifier Biopsy Site Eszfa-Euoll-03 - [id number] Implanted:Qty: 1 on 08/02/2023 by Mo Escobedo MD at [facility] Left: Breast [employer] [id number] 02/16/2024 [facility] / / [id number] [employer] Angio-Seal Vip 6fr Closere Device [id number] - [id number] Implanted:Qty: 1 on 02/22/2024 by Meseret Jin MD at [facility] [employer] 09/30/2024 [id number] / / [id number] Explanted Type Area Mental Health Assistant Device Identifier Shelf Expiration Date Model / Serial / Lot Screw Bone Acu-Loc 2 Titanium L22 Mm Od2.3 Mm Cortical Nontoggle Thread Nonsterile Silver - [id number] Implanted:Qty: 1 Explanted:Qty: 1 on 08/05/2017 at [facility] CO-[id number] / / Procedures Procedure Name Priority Date/Time Associated Diagnosis Comments SCAN - LABS 09/19/2024 SCREENING MAMMOGRAM BILATERAL W SAM Schedule Routine, Read Routine (OP Routine) 08/10/2024 9:34 AM SPEECH LANGUAGE PATHOLOGIST PRN Encounter for screening mammogram for breast cancer [...] Mammogram Bilateral W Sam (08/10/2024 9:34 AM SPEECH LANGUAGE PATHOLOGIST PRN) Anatomical Region Laterality Modality Breast Bilateral Mammography Narrative 08/10/2024 2:09 PM SPEECH LANGUAGE PATHOLOGIST PRN Mammogram Technique: Bilateral Digital Breast Tomosynthesis, Bilateral C-view 2D Screening mammogram. Views obtained: bilateral craniocaudal and bilateral mediolateral oblique. Computer Aided Detection was performed. Mammogram Findings: The present examination has been compared to prior imaging studies performed at [facility]. [facility] on 03/07/2022, 05/22/2023 and 06/24/2023. There are [...] compared to prior imaging studies performed at [facility]. [facility] on 03/07/2022, 05/22/2023 and 06/24/2023. There are scattered areas of fibroglandular density. There is no suspicious abnormality in either breast. Impression: There is no mammographic evidence of malignancy. Annual screening mammography is recommended. OVERALL FINAL ASSESSMENT: BI-RADS CATEGORY 1: Negative. Amina Tera Selbert POWER SYSTEM ENGINEER IMG MAMMO PROCEDURES Fi nal Result * Colonoscopy (04/24/2024 12:35 PM CDT) Anatomical Region Laterality Modality Other Narrative Procedure Note Nacho Sue, - 04/24/2024 12:35 PM CDT [facility] Patient Name: Tayla Castillo Procedure Date: 04/24/2024 12:35PM Date of : 1960 Admit Type: Outpatient Age: 63 Gender: Female Attending MD: Nacho Sue D.O. Room: [facility] ENDOSCOPY ROOM 2 Note Status: Finalized Patient [...] to home. - Benefiber or Metamucil q.d.. [place] colon Health probiotic per labelinstructions. indefinitely. - [...] under direct vision. The Pediatric Colonoscope [id number] was introducedthrough the anus and advanced to [...] 12:35 PM Procedure Code(s): --- Professional --- 11667, Colonoscopy, flexible; with biopsy, single or multiple --- Technical --- 84339, Colonoscopy, flexible; with biopsy, single or multiple Diagnosis Code(s): --- Professional --- R10.9, Unspecified abdominal pain R19.7, Diarrhea, unspecified --- Technical --- R10.9, Unspecified abdominal pain R19.7, Diarrhea, unspecified CPT copyright 2020 [employer]. All rights reserved. The codes documented in this report are preliminary and upon automotive parts advisor reviewmay be revised to meet current compliance requirements. Recognized by the [employer] for promoting quality [...] with given history of: post-menopausal osteoporosis prevention Mental Health Assistant/Model: Entrecard SL (S/N 77035) CLINICAL INFORMATION: Current height: 60.3 inches Maximum [...] Frazier M.D. MF: LUIS EDUARDO Report ID: [id number] Reading Location: [id number] Procedure Note Nicolas Frazier MD - 12/01/2023 EXAM DESCRIPTION: DEXA AXIAL SKELETON BONE DENSITY 1 OR MORE SITES REASON FOR STUDY: 63 y/o year old F with given history of: post-menopausal osteoporosis prevention Mental Health Assistant/Model: Lono (S/N 96539) CLINICAL INFORMATION: Current height: 60.3 inches Maximum [...] Frazier M.D. MF: LUIS EDUARDO Report ID: [id number] Reading Location: [id number] Leah Potter POWER SYSTEM ENGINEER IMG DXA PROCEDURES Final Re sult * Hepatitis C (HCV) RNA PCR, quantitative (12/18/2019 9:24 AM CDT) Pathologist [facility] HCV RNA IU/mL <15 NOT DETECTED NOT DETECTED IU/mL [facility] HCV RNA log IU/mL <1.18 NOT DETECTED NOT DETECTED Log IU/mL [facility] Comment: This test was performed using Real-Time Polymerase Chain Reaction. Reportable Range: 15 IU/mL to 100,000,000 IU/mL (1.18 Log IU/mL to 8.00 Log IU/mL). The analytical performance characteristics of this assay have been determined by [employer]. The modifications have not been cleared or approved by the FDA. This assay has been validated pursuant to the CLIA regulations and is used for clinical purposes. For more information on this test, go to: http://education.[employer]/faq/TBY53v4 (This link is being provided for informational/ educational purposes only.) 12/18/2019 9:24 AM CDT 12/18/2019 9:26 AM CDT Narrative [facility] - 12/19/2019 3:27 PM CDT FASTING:YES FASTING: YES Vanessa Rasmussen NP LAB MICROBIOLOGY - GENERA L ORDERABLES Final Result [facility] [address] [place] [address] * PAP SMEAR WITH HPV (04/24/2016) Pap smear Normal Comment:Dr Fuentes at [facility] Historical Provider HEALTH MAINTENANCE Final Result from Last 3 Months or Most Recently Relevant to Health Maintenance Insurance [employer] * Guarantor: Tayla Castillo Account Type Relation to Patient Date of Phone Billing Address Personal/Family Self 1960 [address] [place] [address] [employer] * Guarantor: TAYLA CASTILLO Account Type Relation to Patient Date of Phone Billing Address Personal/Family Self Advance Directives For more information, please contact: [phone] * Full Code (Latest Code Status on File) Date Activated Date Inactivated Comments 04/24/2024 12:37 PM 04/24/2024 7:43 PM * Full Code Date Activated Date Inactivated Comments 04/24/2024 12:37 PM 04/24/2024 12:37 PM * Full Code Date Activated Date Inactivated Comments 05/30/2018 7:42 AM 05/30/2018 11:32 AM * Full Code Date Activated Date Inactivated Comments 05/30/2018 7:42 AM 05/30/2018 7:42 AM Care Teams Rn Call Center Relationship Specialty Start Date End Date Bienvenido Girard MD [address] [place] [address] PCP - General 10/09/16 Rodriguez Key MD [address] [address] Referring Physician Obstetrics and Gynecology 06/24/23
--- OUTSIDE RECORDS SUMMARY | 2024-10-02 00:51 | XMS_ITS | Continuity of Care Document ---
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 Name Role Phone Caprice MODI/Queta Leach CHT Unavailable Nicky vailable Procedures Procedure Date Therapeutic Exercise Therapeutic Activities Neuromuscular Re-Ed Manual Therapy Hot or Cold Pack Therapeutic Exercise Therapeutic Activities Neuromuscular Re-Ed Manual Therapy Hot or Cold Pack Therapeutic Exercise Therapeutic Activities Neuromuscular Re-Ed Manual Therapy Hot or Cold Pack Therapeutic Exercise Therapeutic Activities Neuromuscular Re-Ed Manual Therapy Hot or Cold Pack Therapeutic Exercise Therapeutic Activities Neuromuscular Re-Ed Manual Therapy Hot or Cold Pack Therapeutic Exercise Therapeutic Activities Neuromuscular Re-Ed Manual Therapy Hot or Cold Pack Therapeutic Exercise Therapeutic Activities Neuromuscular Re-Ed Hot or Cold Pack Therapeutic Exercise Therapeutic Activities Neuromuscular Re-Ed Manual Therapy Therapeutic Exercise Therapeutic Activities Neuromuscular Re-Ed Manual Therapy Therapeutic Exercise Therapeutic Activities Neuromuscular Re-Ed Manual Therapy Progress Note Therapeutic Exercise Therapeutic Activities Neuromuscular Re-Ed Manual Therapy Therapeutic Exercise Therapeutic Activities Neuromuscular Re-Ed Manual Therapy Therapeutic Exercise Therapeutic Activities Neuromuscular Re-Ed Manual Therapy Hot or Cold Pack Therapeutic Exercise Therapeutic Activities Neuromuscular Re-Ed Manual Therapy Hot or Cold Pack Therapeutic Exercise Therapeutic Activities Neuromuscular Re-Ed Manual Therapy Therapeutic Exercise Therapeutic Activities Neuromuscular Re-Ed Manual Therapy Therapeutic Exercise Therapeutic Activities Neuromuscular Re-Ed Manual Therapy Hot or Cold Pack Therapeutic Exercise Therapeutic Activities Neuromuscular Re-Ed Manual Therapy Hot or Cold Pack Therapeutic Exercise Therapeutic Activities Neuromuscular Re-Ed Manual Therapy Hot or Cold Pack Therapeutic Exercise Therapeutic Activities Manual Therapy Hot or Cold Pack Therapeutic Exercise Therapeutic Activities Manual Therapy Hot or Cold Pack Therapeutic Exercise Therapeutic Activities Manual Therapy Hot or Cold Pack Therapeutic Exercise Therapeutic Activities Neuromuscular Re-Ed Manual Therapy Therapeutic Exercise Therapeutic Activities Neuromuscular Re-Ed Hot or Cold Pack Therapeutic Exercise Therapeutic Activities Neuromuscular Re-Ed Hot or Cold Pack Therapeutic Exercise Therapeutic Activities Neuromuscular Re-Ed OT Evaluation Low Complexity Therapeutic Exercise Orthotic Mgmt and Training Wrist Immobilization Advance Directives Directive Yes / No Effective Date File Name No Information Encounters Encounter Description Practice Location Reason(s) For Visit Diagnoses Date Provider Providers Copied on Encounter [facility] [address], [id number], tel:[phone] Juan Alberto Pain in right wristStiffness of right wrist, not elsewhere classifiedEffusi on, right wristOth symptoms and signs involving the musculoskeletal systemColles' fracture of r radius, subs for clos fx w routn heal 8 Caprice Richardsah. [address] [place] [address], [facility], . tel:[phone] Referring Provider: Rufus Johnson [address] [place], [address]. tel:[phone] [facility] [address] [facility] [address], [place], [id number], tel:[phone] [place] Pain in right wristStiffness of right wrist, not elsewhere classifiedEffusi on, right wristOth symptoms and signs involving the musculoskeletal systemColles' fracture of r radius, subs for clos fx w routn heal 8 Caprice Birch. [address] [place] [address], [address], [facility], . tel:[phone] Referring Provider: Rufus Johnson [address] [place], [address]. tel:[phone] [facility] [address], [place], [place], [id number], [place] tel:[phone] Juan Alberto Pain in right wristStiffness of right wrist, not elsewhere classifiedEffusi on, right wristOth symptoms and signs involving the musculoskeletal systemColles' fracture of r radius, subs for clos fx w routn heal Apr-0 9-201 8 Vasques Queta. [address] [place] [address], [address], [place], [facility], [place]. tel:[phone] Referring Provider: Agustin Garcia, [address] [facility], [place], [address]. tel:[phone] [facility] [address], [id number], [place] tel:[phone] [place] Pain in right wristStiffness of right wrist, not elsewhere classifiedEffusi on, right wristOth symptoms and signs involving the musculoskeletal systemColles' fracture of r radius, subs for clos fx w routn heal Apr-0 5-201 8 Vasques Queta. [address] [place] [address], [address] [place] [address], [facility], [place]. tel:[phone] Referring Provider: Agutsin Garcia, [address] [facility] , [place], [address]. tel:[phone] [facility] [address], [id number], [place] tel:[phone] [place] Pain in right wristStiffness of right wrist, not elsewhere classifiedEffusi on, right wristOth symptoms and signs involving the musculoskeletal systemColles' fracture of r radius, subs for clos fx w routn heal Apr-0 2-201 8 Vasques Queta. [address] [place] [address], [address], [place], [facility], [place]. tel:[phone] Referring Provider: Agustin Garcia, [address] [facility] , [place], [address]. tel:[phone] [facility] [address], [place], [place], [id number], [place] tel:[phone] Juan Alberto Pain in right wristStiffness of right wrist, not elsewhere classifiedEffusi on, right wristOth symptoms and signs involving the musculoskeletal systemColles' fracture of r radius, subs for clos fx w routn heal 6 8 Vasques Queta. [address] [place] [address], [address], [place], [facility], [place]. tel:[phone] Referring Provider: Agustin Garcia, [address] [facility], [place], [address]. tel:[phone] [facility], [place], [place], [id number], [place] tel:[phone] Juan Alberto Pain in right wristStiffness of right wrist, not elsewhere classifiedEffusi on, right wristOth symptoms and signs involving the musculoskeletal systemColles' fracture of r radius, subs for clos fx w routn heal 8 Odilon See. . Referring Provider: Agustin Garcia, [address] [facility] , [place], [address]. tel:[phone] [facility], [place], [place], [id number], [place] tel:[phone] Juan Alberto Pain in right wristStiffness of right wrist, not elsewhere classifiedEffusi on, right wristOth symptoms and signs involving the musculoskeletal systemColles' fracture of r radius, subs for clos fx w routn heal 8 Vasques Queta. [address] [place] [address], [address], [place], [address], [place]. tel:[phone] Referring Provider: Agustin Garcia [address] [facility] , [place], [address]. tel:[phone] [facility], [place], [place], [id number], [place] tel:[phone] Juan Alberto No Information 8 Vasquesoleg Birch. [address] [place] [address], [address], [place], [address], . tel:[phone] Referring Provider: Agustin Garcia, [address] , [place], [address]. tel:[phone] [address], [place], [place], [id number], tel:[phone] Juan Alberto No Information Mar-1 2-201 8 Vasques Queta. [address] [place] [address], [address], [place], [facility], . tel:[phone] Referring Provider: Agustin Garcia, [address] , [place], [address]. tel:[phone] [address] [facility], [place], [place], [id number], tel:[phone] Juan Alberto No Information Mar-0 8-201 8 Vasques Queta. [address] [place] [address], [address], [place], [facility], . tel:[phone] Referring Provider: Agustin Garcia, [address] , [place], [address]. tel:[phone] [address] [place] [address], [id number], tel:[phone] [place] No Information Mar-0 6-201 8 Vasques Queta. [address] [place] [address], [address], [place], [facility], . tel:[phone] Referring Provider: Agustin Garcia, [address] , [place], [address]. tel:[phone] [address], [id number], [place] tel:[phone] Juan Alberto No Information Mar-0 5-201 8 Vasques Queta. [address] [place] [address], [address], [place], [facility], . tel:[phone] Referring Provider: Agustin Garcia, [address] , [place], [address]. tel:[phone] [facility], [address], [place], [place], [id number], [place] tel:[phone] Juan Alberto No Information Mar-0 1-201 8 Odilon See. . Referring Provider: Agustin Garcia, [address] , [place], [address]. tel:[phone] [facility] [address], [place], [id number], [place] tel:[phone] Juan Alberto No Information Feb-2 7-201 8 Vasques Queta. [address] [place] [address], [address], [place], [facility], . tel:[phone] Referring Provider: Agustin Garcia, [address] [facility] , [place], [address]. tel:[phone] [facility] [address], [place], [place], [id number], tel:[phone] Juan Alberto No Information Feb-2 6-201 8 Vasques Queta. [address] [place] [address], [address], [place], [facility], . tel:[phone] Referring Provider: Agustin Garcia, [address] , [place], [address]. tel:[phone] [facility] [address], [place], [id number], [place] tel:[phone] [place] No Information Feb-2 2-201 8 Vasques Queta. [address] [place] [address], [address], [place], [facility], . tel:[phone] Referring Provider: Agustin Garcia, [address] [facility] , [place], [address]. tel:[phone] [facility], [address], [place], [place], [id number], tel:[phone] [place] No Information Feb-2 0-201 8 Vasques Queta. [address] [place] [address], [address], [place], [address], [place]. tel:[phone] Referring Provider: Agustin Garcia, [address] [facility] , [place], [address]. tel:[phone] [address], [place], [place], [id number], tel:[phone] Juan Alberto No Information b-1 9-201 8 Caprice Birch. [address] [facility], [address], [place], [address], [place]. tel:[phone] Referring Provider: Agustin Garcia, [address] [facility] , [place], [address]. tel:[phone] [facility] [address] [place], [place] [address], [place], [place], [id number], tel:[phone] Juan Alberto No Information b1 5-201 8 Guimbarda Mayi. . Referring Provider: Agustin Garcia, [address] [facility] , [place], [address]. tel:[phone] [facility], [address], [place], [id number], [place] tel:[phone] Juan Alberto No Information b-1 3-201 8 Guimbarda Mayi. . Referring Provider: Agustin Garcia, [address] [facility] , [place], [address]. tel:[phone] [facility] [address], [place], [place], [id number], [place] tel:[phone] Juan Alberto No Information b-1 2-201 8 Guimbarda Mayi. . Referring Provider: Agustin Garcia, [address] [facility] , [place], [address]. tel:[phone] [facility], [address], [place], [place], [id number], [place] tel:[phone] Juan Alberto No Information Feb-0 8-201 8 Caprice Birch. [address] [facility], [address] tel:[phone] Referring Provider: Agustin Garcia, [address] , [place], [address]. tel:[phone], [id number], tel:[phone] [place] No Information Feb0 8 Caprice Birch. [address] [place] [address], [place] [address], . tel:[phone] Referring Provider: Agustin Garcia, [address] , [place], [address]. tel:[phone], [id number], tel:[phone] [place] No Information 0 8 Caprice Birch. [address] [place] [address], [place] [address], . tel:[phone] Referring Provider: Agustin Garcia, [address] , [place], [address]. tel:[phone], [id number], tel:[phone] Juan Alberto No Information 0 8 Caprice Birch. [address] [place] [address], [place] [address], . tel:[phone] Referring Provider: Agustin Garcia, [address] [place], [address]. tel:[phone], [id number], tel:[phone] [place] Pain in right wristStiffness of right wrist, not elsewhere classifiedEffusi on, right wristOth symptoms and signs involving the musculoskeletal systemColles' fracture of r radius, subs for clos fx w routn heal 0 8 Vasques Queta. [address] [place] [address], [address], [place], [address], [place]. tel:[phone] Referring Provider: Agustin Garcia, [address], [place], [address]. tel:[phone] Family History Family Member Type Diagnosis Age At Onset No Information Payers Payer name Insurance type Covered democrat ID Authoriza tinadir(s) [facility] [id number] Social History Type Description Quantity Date Captured Comments Sex Female Smoking Status No Information Chief Complaint And Reason For Visit No Information Reason For Referral Reason For Referral No Information History Of Present Illness Encounter Date Complaint History Of Prese nt Illness No Information Functional Status Date Functional Assessmen t No Information Instructions Date Instruction Additional Infor mation No Information Assessments Type Assessment Date No Information Patient Care Teams Name Effective Dates (start - stop) Status Members No Information
--- NOTE | 2024-10-02 07:17 | WPDHPUPDATE1 ---
History and Physical Update Update Date/Time: 10/02/24 07:17 History and Physical has been reviewed, including an updated exam of the patient. There are NO changes in the patient's condition. Risks, benefits, and alternatives have been discussed and questions answered. Patient agrees to proceed with procedure.
--- NOTE | 2024-10-02 08:53 | WPDHPUPDATE1 ---
History and Physical Update Update Date/Time: 10/02/24 08:53 History and Physical has been reviewed, including an updated exam of the patient. There are NO changes in the patient's condition. Risks, benefits, and alternatives have been discussed and questions answered. Patient agrees to proceed with procedure.
[2024-10-02] MEDS: KETOROLAC 15 MG/ML VIAL (*BKC) IV PUSH (10:20)
[2024-10-02] MEDS: ACETAMINOPHEN 500 MG TABLET 1000 MG PO (10:25)
[2024-10-02] MEDS: LACTATED RINGERS 1,000 ML 30 ML IV CONT ×2 (10:25→13:31)
--- NOTE | 2024-10-02 10:29 | P.PNAN_ITS ---
Anes - Initial Pre Proc Eval Procedure: Operation Date: 10/02/24 12:00 Proposed Procedures p Robotic Sacrocolpopexy, Urethral Sling - Luis Enrique Mi MD s Robotic Supracervical Hysterectomy with Bilateral Salpingectomy and Salpingo- oophorectomy - Rodriguez Key MD Date/Time: 10/02/24 10:29 Surgeon: Luis Enrique Mi MD Pre Op Diagnosis: incomp uterine prolapase, stress incont, cystocele Patient Data Age: 64 Gender: F Height: 1.55 m Weight: 52.5 kg Last Vital Signs Temp 97.7 F 09/19/24 14:19 Pulse 75 09/19/24 14:19 Resp 16 09/19/24 14:19 BP 129/68 09/19/24 14:19 Pulse Ox 100 09/19/24 14:19 O2 Del Method Room Air 09/19/24 14:19 Allergies Allergy/AdvReac Type Severity Reaction Status Date / Time No Known Allergies Allergy Verified 09/26/24 15:41 Home Medications ?Medication ?Instructions ?Recorded ?Confirmed ?Type cholecalciferol (vitamin D3) 25 25 mcg PO DAILY 04/14/21 09/19/24 History mcg (1,000 unit) capsule tramadol 50 mg tablet 50 mg PO Q6H PRN pain 04/14/21 09/19/24 History vitamin B complex 1 cap PO DAILY 04/14/21 09/19/24 History vitamin E 200 unit capsule 200 unit PO DAILY 04/14/21 09/19/24 History ascorbic acid (vitamin C) 1,000 mg 1,000 mg PO DAILY 09/19/24 09/19/24 History tablet,extended release (C Complex) atorvastatin 80 mg tablet 80 mg PO QPM 09/19/24 09/19/24 History budesonide 3 mg 3 mg PO DAILY 09/19/24 09/19/24 History capsule,delayed,extended release calcium carbonate (Calcium 600) 300 mg PO DAILY 09/19/24 09/19/24 History cyclobenzaprine 10 mg tablet 10 mg PO Q8H PRN anxiety 09/19/24 09/19/24 History soy isoflavone-black cohosh 1 cap PO DAILY 09/19/24 09/19/24 History root-magnolia bark 155 mg capsule (Estroven) scopolamine base 1 mg over 3 days 1 patch transdermal Q3D PRN 09/29/24 Rx transdermal patch surgery #1 ea Patient hx anesthesia problems: post op nausea/vomiting Family hx anesthesia problems: none Results Review: All pre-operative results and documents have been reviewed as part of the pre- operative evaluation. [facility] Surgical History Surgical History S/P wrist surgery Hx of rotator cuff surgery bilateral [place] teeth removed Family History Family History Mother Hypertension Family history of elevated blood lipids Family history of diabetes mellitus in first degree relative Family history of coronary artery disease Social History Social History Smoking status: Never smoker Second hand tobacco smoke exposure: No Alcohol intake: current Drinks per week: 2 Substance use: never Do You Feel Safe in your Home?: Yes Lack of Transportation: No Lack of Food: Never True Current Housing: I Have Housing Concerned About Future Housing: No Difficulty Paying Gas/Electric Bills: No Difficulty Paying for Meds: No Currently Unemployed: No Education: High School Diploma/GED Difficulty w/ Childcare or Family Care: No Living arrangements: with family Additional living arrangements comments: Spiritual care concerns: No Anes - Eval Final PreProcedure Day of Procedure 10/02/24 10:29 Patient weight: normal Lungs: normal air movement Airway: Mallampati scale class II Neurological: alert and oriented Last oral intake: >/= 8 hours ASA classification: II Emergent: no Anesthetic plan: proceed Anesthesia type and monitoring: general ETT and standard monitoring Results Review: All pre-operative results and documents have been reviewed as part of the pre- operative evaluation. Hyperlipidemia. Overall good functional status, no cp or sob w activity. Informed Consent: The patient's anesthetic plan and its attendant risks and benefits were discussed with the patient/family/POA. Questions were solicited and answers provided to the satisfaction of the patient/family/POA.
[2024-10-02] MEDS: ceFAZolin 2 GM/D5W 50 ML 2 GM/50 ML BAG IVPB (10:45)
[2024-10-02] MEDS: metroNIDAZOLE 500 MG/ISO 100ML 500 MG/100 ML BAG 100 MG IVPB (10:55)
[2024-10-02] MEDS: BUPIVACAINE/EPINEPHRINE 0.5% 50 ML VIAL 30 ML INFILTRATE (11:29)
--- NOTE | 2024-10-02 11:40 | W.PM.PROC2 ---
Procedure Note - Detailed Date of Procedure 10/02/24 Pre-op Diagnosis incomp uterine prolapase, stress incont, cystocele Post-op Diagnosis Same Procedure Performed Laparoscopic robotic assisted laparoscopic supracervical hy Surgeon Rodriguez Key MD Anesthesia General Indications Uterine prolapse Findings small uterus normal atretic ovaries bilaterally normal fallopian tubes bilateral Description of Procedure After informed consent was obtained she was taken to the operating room and general endotracheal anesthesia was administered. She was placed in low lithotomy position.She was and prepped and draped in sterile fashion. Attention was turned to the vagina speculum was inserted. Single-tooth tenaculum placed on anterior lip of the cervix. An acorn uterine manipulator inserted. At this time Dr. Mi inserted robotic ports. Attention was turned to surgery console. The right round ligament was ligated. The anterior leaf of broad ligament was dissected. The ascending uterine vessels were ligated. The vesicouterine peritoneum on right dissected from upper cervix. The uterine arteries on that side were ligated. Attention was turned to the left round ligament which was ligated and the anterior leaf of the broad ligament was dissected anteriorly. The left infundibulopelvic ligament was ligated and fallopian tubes ligated from mesosalpinx. The rest of the bladder reflection dissected below upper cervix. The ascending uterine vessels were ligated. The uterine arteries ligated. The uterus was amputated from cervix with cautery. The uterus and both fallopian tubes and ovaries were placed in endocatch bag. Hemostasis at cervix site obtained with cautery. Dr. Mi then resumed portion of the surgery.x Estimated Blood Loss 5 Drains No Packing No Pathology Yes (uterus with right and left fallopian tubes and ovaries) Complications No immediate complications Condition Stable Disposition Other [facility] Billing Surgery - Charge Forward: Surgery Billing
--- NOTE | 2024-10-02 13:28 | W.PM.PROC2 ---
Procedure Note - Detailed Date of Procedure 10/02/24 Pre-op Diagnosis uterine prolapse, stress incontinence Post-op Diagnosis Same Procedure Performed Robotic assisted laparoscopic sacral colpopexy Urethral sling Cystoscopy Surgeon Luis Enrique Mi MD Anesthesia General Indications A woman with uterine prolapse as well as stress incontinence. She desires surgical correction. She is here for the above. She understands risks of bleeding, infection, diskitis, damage to surrounding organs, bowel injury, bowel obstruction, mesh related complications including exposure and extrusion, postoperative voiding dysfunction including incontinence and retention, need for ancillary procedures, dyspareunia, recurrence of prolapse, and other perioperative intraoperative postoperative complications. She agrees to proceed. Findings See below Description of Procedure She was correctly identified. Informed consent obtained. She from the operating room. She was given general anesthesia. She was given appropriate perioperative antibiotics. She was placed a low lithotomy position. Pressure points were padded. A time-out performed. I marked out the skin 3 fingerbreadths cephalad to the umbilicus. I anesthetized the skin. I incised the skin. I dissected down to the fascia. I grasped the fascia with Arsen clamps. I entered the fascia sharply in a Casey type technique. I placed sutures for later fascial closure. I placed a midline trocar. I examined the abdomen. There is no sign of any injury. Under direct vision I placed 2 additional trocars in the right upper quadrant and 2 additional trocars the left upper quadrant. She was placed in steep Trendelenburg. The robot was docked. Her portfolio administrator completed their portion of the procedure. Please see that operative report for details. I then sat at the console. The Sizer in the vagina created plane on the anterior and posterior vaginal wall. I took great care not to injure the vagina, bladder, or rectum. I introduced the mesh into the abdomen. I sewed the anterior leaflet of mesh on the anterior vaginal wall. I sewed the posterior leaflet of mesh on the posterior vaginal wall. This was done with several sutures of 2 0 Addison-Nick. Great care not to go through and through the vaginal mucosa. I reflected the colon laterally. I opened the posterior peritoneum over the sacral promontory. I carried this into the cul-de-sac. I freed up the edges for later retroperitonealization. I located the anterior longitudinal ligament the sacrum. I cleaned off all fatty tissues. I then tensioned my mesh appropriately. I did a vaginal exam the bedside. I assured prolapse reduction without undue tension. I then sewed the proximal leaflet of mesh onto the anterior longitudinal ligament of the sacrum with 3 sutures of 2 0 Addison-Nick. I then used a 2 0 Monocryl to completely and meticulously retroperitonealized all mesh. I allowed the colon to go back to its normal anatomic location. There is no sign of any impingement. The specimen was then removed. All ports removed. Fascia was tied down. An additional 2 sutures were used to fully close the fascia. Skin was closed with Monocryl and surgical glue. She was repositioned and prepped for urethral sling. I marked out the inner thigh incisions. I anesthetized the skin and made the incisions. I then anesthetized the anterior vaginal wall at the mid urethra. I made a 1 cm incision. I dissected out laterally taking great care not to injure the refilled vaginal wall. I passed the helical trocars. I did this 1st on the left and then on the right. This was done from the thigh incision towards the vaginal incision. Sling was connected to the trocars and brought out the thigh incision. I tensioned the sling appropriately. I cut and the plastic sheaths. I closed the incision with 2 0 Vicryl. I then performed cystoscopy. There was no tumors or surgical artifact. Both ureters were seen to excrete clear yellow urine. There is no surgical artifact in the bladder or urethra. I cut the excess sling material. Close incision with glue. She was awakened and transferred to PACU in stable condition. Implants Sacral colpopexy mesh Urethral sling Estimated Blood Loss 20 Packing No Pathology None sent Complications No immediate complications Condition Stable Disposition PACU
[2024-10-02] MEDS: fentaNYL CITRATE INJ (*CRX) 100 MCG/2 ML VIAL 25 MCG IV PUSH ×2 (14:03→14:11)
--- NOTE | 2024-10-02 14:58 | SUR.PHASEI ---
1458 - 300 mls of NS instilled into bladder, noble removed
[2024-10-02] MEDS: oxyCODONE HCL (*CRX) 5 MG TAB IR PO (15:33)
== END 2024-10-02 16:17 | disposition home or self-care (01) ==
PROVIDERS: Obstetrics & Gynecology; PCP Family Medicine; Visit Provider Urology
PROC: (CPT 57425; principal; 2024-10-02 12:00)
PROC: (CPT 58542; 2024-10-02 12:00)
DX: N39.3 Stress incontinence (female) (male) (principal); N85.8 Other specified noninflammatory disorders of uterus; D25.2 Subserosal leiomyoma of uterus; N83.292 Other ovarian cyst, left side; N83.291 Other ovarian cyst, right side; N83.8 Other noninflammatory disorders of ovary, fallopian tube and broad ligament; Z98.890 Other specified postprocedural states; Z82.49 Family history of ischemic heart disease and other diseases of the circulatory system; Z79.891 Long term (current) use of opiate analgesic
CPT/HCPCS: 57288; 57425; 58542; S2900 ×2; 88307; A9270; C1771; C1781; J0690; J1100; J1171; J1836; J1885; J2003; J2250; J2405; J2704; J3010; J7030; J7120